=== PATIENT | female | born 1970 | race Caucasian/White ===

== ENCOUNTER 2017-05-11 12:52 | Emergency (ER) | payer SELFPAY ==
[~2017-05-11] VITALS: Ht 149.9 cm; Wt 64.0 kg
[~2017-05-11 12:52] MED LIST: ASPIRIN EC325 MG PO; CARDIZEM CD120 MG PO; CARDIZEM30 MG PO; COREG25 MG PO; COUMADIN7.5 MG PO; DIGOXIN0.25 MG PO; KEFLEX500 MG PO; LANOXIN0.25 MG PO; LASIX 20 MG20 MG/TAB PO; LORTAB 5 OR; ULTRAM50 M1 OR; XARELTO10 MG PO
[2017-05-11 13:47] LABS: HEMATOCRIT 49.8 % (37.0-47.0); HEMOGLOBIN 16.8 g/dl (12.0-16.0); IMMATURE GRANULOCYTES 0.2 % (0.0-1.0); MEAN CORPUSCULAR HGB 33.4 pG CALC (26.0-32.0); MEAN CORPUSCULAR HGB CONC 33.7 g/L CALC (32.0-36.0); NEUT# 5.56 thou/uL (2.00-7.15); RED BLOOD COUNT 5.03 mill/uL (4.20-5.60); RED CELL DISTRI WIDTH 12.7 % (11.5-15.5)
[2017-05-11] MEDS ORDERED: CRESTOR20 MG PO (13:48)
[2017-05-11] MEDS ORDERED: ALBUTEROL0.5 % IN (13:50)
[2017-05-11 14:02] LABS: INTERNATIONAL NORMALIZED RATIO 2.5 RATIO (0.7-1.3); PROTHROMBIN TIME 28.7 SECONDS (9.0-12.5)
[2017-05-11 14:10] LABS: INFLUENZA A NONE DETECTED (NONE DETECT); INFLUENZA B NONE DETECTED (NONE DETECT)
[2017-05-11 16:42] LABS: URINE BILIRUBIN - DIPSTICK NEGATIVE (NEGATIVE); URINE BLOOD DIPSTICK NEGATIVE (NEGATIVE); URINE COLOR YELLOW; URINE GLUCOSE - DIPSTICK NEGATIVE (NEGATIVE); URINE KETONE TRACE mg/dL (NEGATIVE); URINE LEUK ESTERASE NEGATIVE (NEGATIVE); URINE NITRITE - DIPSTICK NEGATIVE (Negative); URINE PH 5.5 (4.5-8.0); URINE PROTEIN - DIPSTICK NEGATIVE (NEG-TRACE); URINE SPECIFIC GRAVITY 1.025; URINE UROBILINOGEN - DIPSTICK 0.2 E.U./dL (0.2)
[2017-05-11] MEDS ORDERED: ZITHROMAX250 MG PO (16:45)
[2017-05-11 16:47] LABS: COCAINE POSITIVE (NEGATIVE); TETRAHYDROCANNABIONOL NEGATIVE (NEGATIVE)
[2017-05-11 16:48] LABS: BARBITURATES NEGATIVE (NEGATIVE); METHADONE NEGATIVE (NEGATIVE); OXCYCODONE NEGATIVE (NEGATIVE); TRICYLIC ANTIDEPRESSANTS NEGATIVE (NEGATIVE)
[2017-05-11 16:49] LABS: URINE CLARITY CLEAR
[2017-05-11 16:56] VITALS: BP 112/59
== END 2017-05-11 16:56 | disposition home or self-care (01) | DRG 203 ==
LOC: ED 12:52
PROVIDERS: Emergency Medicine
DX: J40 Bronchitis, not specified as acute or chronic (principal); F17.210 Nicotine dependence, cigarettes, uncomplicated; R05 Cough; R50.9 Fever, unspecified

== ENCOUNTER 2018-02-15 10:27 | Emergency (ER) | payer SELFPAY ==
[~2018-02-15] VITALS: Ht 149.9 cm; Wt 69.0 kg
[~2018-02-15 10:27] MED LIST changes: +ALBUTEROL0.5 % IN; +CRESTOR20 MG PO; +ZITHROMAX250 MG PO
[2018-02-15] MEDS ORDERED: KEFLEX500 M1 PO (12:08)
[2018-02-15 12:45] VITALS: BP 125/83
== END 2018-02-15 12:45 | disposition home or self-care (01) | DRG 603 ==
LOC: ED 10:27
DX: L03.113 Cellulitis of right upper limb (principal); L03.011 Cellulitis of right finger; S61.431A Puncture wound without foreign body of right hand, initial encounter; M25.441 Effusion, right hand; W45.8XXA Other foreign body or object entering through skin, initial encounter; Y93.9 Activity, unspecified

== ENCOUNTER 2019-04-25 22:22 | Emergency (ER) | payer OTHER ==
[~2019-04-25] VITALS: Ht 149.9 cm; Wt 74.1 kg
[~2019-04-25 22:22] MED LIST changes: +KEFLEX500 M1 PO
[2019-04-25] MEDS ORDERED: COUMADIN10 MG PO (22:39)
[2019-04-25] MEDS ORDERED: TENORMIN25 M1 PO (22:40)
[2019-04-25] MEDS ORDERED: XANAX0.5 MG PO (22:41)
[2019-04-25] MEDS ORDERED: LEVOTHYROXIN75 MCG PO (22:41)
[2019-04-25] MEDS ORDERED: ATORVASTATIN CA80 MG PO (22:42)
--- NOTE | 2019-04-25 22:58 | NUR ---
BREATHING TREATMENT GIVEN. BREATHING TECH. FOR GOOD DEPOSITION TO THE LUNGS.
[2019-04-25 23:12] LABS: IMMATURE GRANULOCYTES 0.8 % (0.0-5.0); MEAN CELL VOLUME 97.9 fL CALC (80.0-100.0); MEAN CORPUSCULAR HGB 31.8 pG CALC (26.0-32.0); MEAN CORPUSCULAR HGB CONC 32.5 g/L CALC (32.0-36.0); NEUT# 8.65 thou/uL (2.00-7.15); RED BLOOD COUNT 4.24 mill/uL (4.20-5.60); RED CELL DISTRI WIDTH 12.9 % (11.5-15.5)
[2019-04-25 23:21] LABS: HEMATOCRIT 41.5 % (37.0-47.0); HEMOGLOBIN 13.5 g/dl (12.0-16.0)
[2019-04-25 23:32] LABS: HCG SERUM/URINE (NEG/POS) NEGATIVE (NEGATIVE)
[2019-04-26] MEDS ORDERED: VENTOLIN HFA IN (00:04)
[2019-04-26] MEDS ORDERED: DOXYCYCL HYC100 MG PO (00:04)
[2019-04-26] MEDS ORDERED: PREDNISONE50 MG PO (00:04)
[2019-04-26 00:20] VITALS: BP 97/67
== END 2019-04-26 00:20 | disposition home or self-care (01) ==
LOC: ED 22:22
PROVIDERS: Family Medicine
DX: J45.901 Unspecified asthma with (acute) exacerbation (principal); I10 Essential (primary) hypertension; I48.91 Unspecified atrial fibrillation; I25.2 Old myocardial infarction; F17.210 Nicotine dependence, cigarettes, uncomplicated; Z86.73 Personal history of transient ischemic attack (TIA), and cerebral infarction without residual deficits

== ENCOUNTER 2019-05-22 | Emergency (ER) | payer OTHER ==
[~2019-05-22] MED LIST changes: +ATORVASTATIN CA80 MG PO; +COUMADIN10 MG PO; +DOXYCYCL HYC100 MG PO; +LEVOTHYROXIN75 MCG PO; +PREDNISONE50 MG PO; +TENORMIN25 M1 PO; +VENTOLIN HFA IN; +XANAX0.5 MG PO
[2019-05-22 12:25] LABS: HEMATOCRIT 43.7 % (37.0-47.0); HEMOGLOBIN 14.4 g/dl (12.0-16.0); IMMATURE GRANULOCYTES 0.4 % (0.0-5.0); MEAN CELL VOLUME 99.1 fL CALC (80.0-100.0); MEAN CORPUSCULAR HGB 32.7 pG CALC (26.0-32.0); NEUT# 5.91 thou/uL (2.00-7.15); RED BLOOD COUNT 4.41 mill/uL (4.20-5.60); RED CELL DISTRI WIDTH 13.1 % (11.5-15.5)
[2019-05-22 12:37] LABS: ANION GAP 12 (6-22 (CALC)); BILIRUBIN, TOTAL 0.4 mg/dL (0.0-1.4); BUN 14 mg/dL (7-17); BUN/CREATININE RATIO 17 (12-20 (CALC)); CARBON DIOXIDE 25 mmol/l (22-30); CHLORIDE 103 mmol/l (95-108); CREATININE 0.8 mg/dL (0.5-1.0); GFR > 60 ML/MIN (>=60 (CALC)); GFR FOR AFR.AMER. > 60 ML/MIN (>=60 (CALC)); POTASSIUM 4.3 mmol/l (3.5-5.1); SGOT/AST 43 u/l (14-36); SODIUM 137 mmol/l (137-146)
[2019-05-22 12:38] LABS: ALBUMIN 4.7 g/dL (3.2-5.0); ALKALINE PHOSPHATASE 119 u/l (38-126); TOTAL PROTEIN 8.5 g/dL (6.3-8.2)
[2019-05-22 12:48] LABS: PROTHROMBIN TIME 41.6 SECONDS (9.0-12.5)
[2019-05-22 12:49] LABS: INTERNATIONAL NORMALIZED RATIO 4.2 RATIO (0.7-1.3)
[2019-05-22 13:34] LABS: URINE BILIRUBIN - DIPSTICK NEGATIVE (NEGATIVE); URINE BLOOD DIPSTICK NEGATIVE (NEGATIVE); URINE COLOR YELLOW; URINE GLUCOSE - DIPSTICK NEGATIVE (NEGATIVE); URINE KETONE NEGATIVE (NEGATIVE); URINE LEUK ESTERASE NEGATIVE (NEGATIVE); URINE NITRITE - DIPSTICK NEGATIVE (Negative); URINE PH 6.5 (4.5-8.0); URINE PROTEIN - DIPSTICK NEGATIVE (NEG-TRACE); URINE UROBILINOGEN - DIPSTICK 0.2 E.U./dL (0.2)
[2019-05-22] MEDS ORDERED: MEDDOSEPAK PO (13:50)
[2019-05-22] MEDS ORDERED: TESSALON PER100 MG PO (13:50)
[2019-05-22] MEDS ORDERED: TRAMADOL HYDROC50 M1 PO (13:50)
[2019-09-27] MEDS ORDERED: LISINOPRIL2.5 MG PO (10:13)
[2019-09-27] MEDS ORDERED: BUSPIRONE7.5 MG PO (10:13)
[2019-11-21] MEDS ORDERED: HYDROCODONE/ACE1 TAB PO ×2 (14:37→14:39)
== END 2019-05-22 14:08 | disposition home or self-care (01) ==
DX: J06.9 Acute upper respiratory infection, unspecified (principal); M17.11 Unilateral primary osteoarthritis, right knee; R79.1 Abnormal coagulation profile; T45.515A Adverse effect of anticoagulants, initial encounter; F17.210 Nicotine dependence, cigarettes, uncomplicated; I48.91 Unspecified atrial fibrillation; I10 Essential (primary) hypertension; I25.2 Old myocardial infarction; Z79.01 Long term (current) use of anticoagulants; Z86.73 Personal history of transient ischemic attack (TIA), and cerebral infarction without residual deficits

== ENCOUNTER 2019-05-25 12:40 | Observation (INO) | payer OTHER ==
[~2019-05-25] VITALS: Ht 149.9 cm; Wt 78.0 kg
[~2019-05-25 12:40] MED LIST changes: +MEDDOSEPAK PO; +TESSALON PER100 MG PO; +TRAMADOL HYDROC50 M1 PO
[2019-05-25 13:33] LABS: HEMATOCRIT 45.2 % (37.0-47.0); HEMOGLOBIN 14.5 g/dl (12.0-16.0); IMMATURE GRANULOCYTES 1.3 % (0.0-5.0); MEAN CELL VOLUME 100.4 fL CALC (80.0-100.0); MEAN CORPUSCULAR HGB 32.2 pG CALC (26.0-32.0); MEAN CORPUSCULAR HGB CONC 32.1 g/L CALC (32.0-36.0); NEUT# 10.27 thou/uL (2.00-7.15); RED BLOOD COUNT 4.5 mill/uL (4.20-5.60); RED CELL DISTRI WIDTH 13.2 % (11.5-15.5)
[2019-05-25] MEDS ORDERED: EQ ASPIRIN81 MG PO (13:43)
[2019-05-25 14:17] LABS: ALBUMIN 4.6 g/dL (3.2-5.0); ALKALINE PHOSPHATASE 94 u/l (38-126); ANION GAP 14 (6-22 (CALC)); BUN 16 mg/dL (7-17); BUN/CREATININE RATIO 22 (12-20 (CALC)); CARBON DIOXIDE 25 mmol/l (22-30); CHLORIDE 103 mmol/l (95-108); CREATININE 0.7 mg/dL (0.5-1.0); GFR > 60 ML/MIN (>=60 (CALC)); GFR FOR AFR.AMER. > 60 ML/MIN (>=60 (CALC)); POTASSIUM 4.6 mmol/l (3.5-5.1); SGOT/AST 40 u/l (14-36); SODIUM 138 mmol/l (137-146); TOTAL PROTEIN 8.2 g/dL (6.3-8.2)
[2019-05-25 14:34] LABS: BILIRUBIN, TOTAL 0.6 mg/dL (0.0-1.4)
[2019-05-25 15:23] LABS: INTERNATIONAL NORMALIZED RATIO 1.5 RATIO (0.7-1.3)
[2019-05-25 15:53] LABS: URINE BILIRUBIN - DIPSTICK NEGATIVE (NEGATIVE); URINE BLOOD DIPSTICK NEGATIVE (NEGATIVE); URINE COLOR YELLOW; URINE GLUCOSE - DIPSTICK NEGATIVE (NEGATIVE); URINE KETONE NEGATIVE (NEGATIVE); URINE LEUK ESTERASE NEGATIVE (NEGATIVE); URINE NITRITE - DIPSTICK NEGATIVE (Negative); URINE PH 5.5 (4.5-8.0); URINE PROTEIN - DIPSTICK NEGATIVE (NEG-TRACE); URINE UROBILINOGEN - DIPSTICK 0.2 E.U./dL (0.2)
[2019-05-25 19:59] VITALS: BP 118/72
[2019-05-26 00:11] VITALS: BP 108/73
[2019-05-26 03:28] VITALS: BP 114/74; BP 120/60
[2019-05-26 09:51] VITALS: BP 116/70
[2019-05-26 11:34] VITALS: BP 102/54
[2019-05-26 11:44] LABS: HEMATOCRIT 44.3 % (37.0-47.0); HEMOGLOBIN 13.9 g/dl (12.0-16.0); MEAN CORPUSCULAR HGB 32.3 pG CALC (26.0-32.0); MEAN CORPUSCULAR HGB CONC 31.4 g/L CALC (32.0-36.0); RED BLOOD COUNT 4.3 mill/uL (4.20-5.60); RED CELL DISTRI WIDTH 13.2 % (11.5-15.5)
[2019-05-26 12:00] LABS: INTERNATIONAL NORMALIZED RATIO 1.8 RATIO (0.7-1.3); PROTHROMBIN TIME 18.4 SECONDS (9.0-12.5)
[2019-05-26 12:01] LABS: ANION GAP 16 (6-22 (CALC)); BUN 12 mg/dL (7-17); BUN/CREATININE RATIO 23 (12-20 (CALC)); CHLORIDE 106 mmol/l (95-108); CREATININE 0.5 mg/dL (0.5-1.0); GFR > 60 ML/MIN (>=60 (CALC)); GFR FOR AFR.AMER. > 60 ML/MIN (>=60 (CALC)); POTASSIUM 4.2 mmol/l (3.5-5.1); SODIUM 137 mmol/l (137-146)
[2019-05-26 12:22] LABS: CARBON DIOXIDE 19 mmol/l (22-30)
[2019-05-26] MEDS ORDERED: PREDNISONE10 MG PO (14:34)
[2019-05-26] MEDS ORDERED: LEVAQUIN750 MG PO (14:34)
[2019-09-27] MEDS ORDERED: LISINOPRIL2.5 MG PO (10:13)
[2019-09-27] MEDS ORDERED: BUSPIRONE7.5 MG PO (10:13)
[2019-11-21] MEDS ORDERED: HYDROCODONE/ACE1 TAB PO ×2 (14:37→14:39)
== END 2019-05-26 15:52 | disposition home or self-care (01) ==
LOC: ED 12:40 → ED-I 16:10 → ED 16:15 → ED-I 16:16 → MS2 17:27
PROVIDERS: Nurse Practitioner Family; ADMIT Internal Medicine; ATTEND Internal Medicine
DX: J45.902 Unspecified asthma with status asthmaticus (principal); J43.9 Emphysema, unspecified; I10 Essential (primary) hypertension; I48.91 Unspecified atrial fibrillation; E03.9 Hypothyroidism, unspecified; E78.5 Hyperlipidemia, unspecified; M25.562 Pain in left knee; I69.998 Other sequelae following unspecified cerebrovascular disease; I69.954 Hemiplegia and hemiparesis following unspecified cerebrovascular disease affecting left non-dominant side; H53.40 Unspecified visual field defects; I25.2 Old myocardial infarction; Z79.01 Long term (current) use of anticoagulants; Z87.891 Personal history of nicotine dependence; Z86.711 Personal history of pulmonary embolism
CPT/HCPCS: G0378; J1650; J3475

== ENCOUNTER 2019-08-17 | Emergency (ER) | payer OTHER ==
[~2019-08-17] MED LIST changes: +EQ ASPIRIN81 MG PO; +LEVAQUIN750 MG PO; +PREDNISONE10 MG PO
[2019-08-17] MEDS ORDERED: CARVEDILOL6.25 MG PO (18:43)
[2019-08-17] MEDS ORDERED: PERCOCET 5/325M1 TAB PO (18:54)
[2019-09-27] MEDS ORDERED: LISINOPRIL2.5 MG PO (10:13)
[2019-09-27] MEDS ORDERED: BUSPIRONE7.5 MG PO (10:13)
[2019-11-21] MEDS ORDERED: HYDROCODONE/ACE1 TAB PO ×2 (14:37→14:39)
== END 2019-08-17 19:08 | disposition home or self-care (01) ==
DX: G89.29 Other chronic pain (principal); M25.561 Pain in right knee; I10 Essential (primary) hypertension; F17.200 Nicotine dependence, unspecified, uncomplicated; I25.2 Old myocardial infarction; Z86.73 Personal history of transient ischemic attack (TIA), and cerebral infarction without residual deficits; Z86.79 Personal history of other diseases of the circulatory system

== ENCOUNTER 2019-11-01 06:03 | Day surgery (SDC) | payer OTHER ==
[~2019-11-01] VITALS: Ht 149.9 cm; Wt 86.2 kg
[~2019-11-01 06:03] MED LIST changes: +BUSPIRONE7.5 MG PO; +CARVEDILOL6.25 MG PO; +LISINOPRIL2.5 MG PO; +PERCOCET 5/325M1 TAB PO
[2019-11-01 08:17] VITALS: BP 133/87
[2019-11-21] MEDS ORDERED: HYDROCODONE/ACE1 TAB PO ×2 (14:37→14:39)
== END 2019-11-01 09:10 | disposition home or self-care (01) ==
LOC: ORM 06:03
PROVIDERS: ATTEND Anesthesiology Pain Medicine
DX: M17.11 Unilateral primary osteoarthritis, right knee (principal); Z01.84 Encounter for antibody response examination

== ENCOUNTER 2020-01-02 11:16 | Inpatient (IN) | payer OTHER ==
[~2020-01-02] VITALS: Ht 149.9 cm; Wt 86.0 kg
[~2020-01-02 11:16] MED LIST changes: +HYDROCODONE/ACE1 TAB PO
--- NOTE | 2020-01-02 11:22 | NUR ---
PT TO ROOM VIA WC
--- NOTE | 2020-01-02 11:23 | NUR ---
PATIENT PRESENTS WITH INCREASED WEAKNESS TO LEFT UPPER AND LOWER EXTREMITIES WELL STATED SLURRED SPEECH. 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 PT UNSURE OF LAST KNOWN WELL AND STATES IT WAS SOME TIME YESTERDAY AFTERNOON WHEN HER SYMPTOMS STARTED. PT A&O X 3. STROKE ALERT CALLED.
--- NOTE | 2020-01-02 11:26 | NUR ---
PATIENT TO CT IN STABLE CONDITION VIA STRETCHER.
--- NOTE | 2020-01-02 11:28 | NUR ---
DR ROBERTS ON TELESTROKE SCREEN, PT INFORMATION WAS PROVIDED WHILE PT WAS GETTING CT BRAIN. 1132 DR ROBERTS ASSESSED PATIENT AND NIH WAS COMPLETED. AFTER EXAM DR ROBERTS STATED HE DID NOT WANT CTA AND WILL CALL DR DUNCAN TO DISCUSS PLAN OF CARE.
--- NOTE | 2020-01-02 11:40 | NUR ---
FULL NIH COMPLETED. PT SCORED A 7. PATIENT HAS LEFT SIDED FACIAL DROOP, LEFT ARM DRIFT AND UNABLE TO RESIST GRAVITY TO LLE. 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 ATAXIA TO LLE AND MILD SENSORY LOSS TO LEFT SIDE OF BODY.
[2020-01-02 12:06] LABS: GFR > 60 ML/MIN (>=60 (CALC)); GFR FOR AFR.AMER. > 60 ML/MIN (>=60 (CALC))
[2020-01-02 12:09] LABS: HEMATOCRIT 46.4 % (37.0-47.0); HEMOGLOBIN 14.8 g/dl (12.0-16.0); IMMATURE GRANULOCYTES 0.7 % (0.0-5.0); MEAN CELL VOLUME 97.1 fL CALC (80.0-100.0); MEAN CORPUSCULAR HGB CONC 31.9 g/dL CAL (32.0-36.0); NEUT# 7.01 thou/uL (2.00-7.15); RED BLOOD COUNT 4.78 mill/uL (4.20-5.60); RED CELL DISTRI WIDTH 12.6 % (11.5-15.5)
--- NOTE | 2020-01-02 12:10 | NUR ---
DR DUNCAN AT BEDSIDE TO DISCUSS RESULTS AND POC.
[2020-01-02 12:41] LABS: ALBUMIN 4.6 g/dL (3.2-5.0); ALKALINE PHOSPHATASE 118 u/l (38-126); ANION GAP 13 (6-22 (CALC)); BILIRUBIN, TOTAL 0.5 mg/dL (0.0-1.4); BUN 13 mg/dL (7-17); BUN/CREATININE RATIO 19 (12-20 (CALC)); CHLORIDE 105 mmol/l (95-108); CREATININE 0.7 mg/dL (0.5-1.0); GFR > 60 ML/MIN (>=60 (CALC)); GFR FOR AFR.AMER. > 60 ML/MIN (>=60 (CALC)); SGOT/AST 39 u/l (14-36); SODIUM 137 mmol/l (137-146); TOTAL PROTEIN 8.2 g/dL (6.3-8.2)
[2020-01-02 12:42] LABS: CARBON DIOXIDE 23 mmol/l (22-30)
[2020-01-02 12:43] LABS: PROTHROMBIN TIME 48.9 SECONDS (9.0-12.5)
[2020-01-02 12:44] LABS: INTERNATIONAL NORMALIZED RATIO 5.3 RATIO (0.7-1.3)
--- NOTE | 2020-01-02 13:10 | NUR ---
TO RADIOLOGY IN STABLE CONDITION VIA STRETCHER.
--- NOTE | 2020-01-02 13:32 | NUR ---
PT RESTING ON STRETCHER WATCHING TV AND TALKING ON CELL PHONE. DENIES ANY NEEDS AT THIS TIME. VSS. MONITORS ATTACHED. CALL LIGHT WITHIN REACH.
--- NOTE | 2020-01-02 14:25 | NUR ---
MD AT BEDSIDE TO DISCUSS RESULTS AND POC.
[2020-01-02 14:57] LABS: CHOLESTEROL HDL RATIO 3.8 (<4.4 (CALC))
--- NOTE | 2020-01-02 15:10 | NUR ---
PHYSICAL THERAPY AT BEDSIDE FOR SWALLOW STUDY.
--- NOTE | 2020-01-02 15:47 | NUR ---
ARCHANA DELAROSA AT BEDSIDE.
--- NOTE | 2020-01-02 16:40 | NUR ---
PT RETURNED FROM RADIOLOGY IN STABLE CONDITION VIA WHEELCHAIR. ASSISTED TO BEDSIDE COMMODE WITH STAND BY ASSIST.
[2020-01-02 17:22] LABS: URINE BILIRUBIN - DIPSTICK NEGATIVE (NEGATIVE); URINE BLOOD DIPSTICK NEGATIVE (NEGATIVE); URINE COLOR YELLOW; URINE GLUCOSE - DIPSTICK NEGATIVE (NEGATIVE); URINE KETONE NEGATIVE (NEGATIVE); URINE LEUK ESTERASE NEGATIVE (NEGATIVE); URINE NITRITE - DIPSTICK NEGATIVE (Negative); URINE PH 5.5 (4.5-8.0); URINE PROTEIN - DIPSTICK NEGATIVE (NEG-TRACE); URINE SPECIFIC GRAVITY 1.015; URINE UROBILINOGEN - DIPSTICK 0.2 E.U./dL (0.2)
--- NOTE | 2020-01-02 18:13 | NUR ---
PT HAD WELSH FRIES AND COKE BROUGHT IN BY AFTER ADVISED PUREED DIET. TOLERATED WITHOUT DIFFICULTY.
--- NOTE | 2020-01-02 18:55 | NUR ---
TELEPHONE REPORT RECEIVED FROM Angel Luis WALSH RN IN ED, ROOM ICU#7 ASSIGNED AND PREPARED TO RECEIVE PT.
--- NOTE | 2020-01-02 18:58 | NUR ---
NURSE TO NURSE REPORT CALLED TO MESSI MA.
--- NOTE | 2020-01-02 19:15 | NUR ---
TO ICU #7 VIA STRETCHER, PT SENT PAIN MEDICATION HOME WITH .
--- NOTE | 2020-01-02 19:20 | NUR ---
PT ARRIVES TO UNIT VIA STRETCHER, ACCOMPANIED BY Angel Luis WALSH RN, PT AMBULATES FROM STRETCHER TO BED WITH ASSIST, GAIT IS UNSTEADY AND UNBALANCED. ASSITED PT TO POSITION COMFORTABLY IN BED. PT AGREES TO USE CALL ARANGO AND NOT ATTEMPT TO GET OOB BY HERSELF. CALL [facility]ANGO WITHIN REACH. AGREES TO CALL PRN.
[2020-01-02 20:00] VITALS: BP 101/66
--- NOTE | 2020-01-02 20:00 | NUR ---
ADMISSION ASSESMENT COMPLETE. PT RESTING IN BED. PT REQUESTS EXTRA PILLOW, EXTRA BLANKETS X2, ICE, FAN, AND TO TURN DOWN THERMOSTAT. STATES SHE GETS "HOT AND COLD" THROUGHOUT THE NIGHT. PROVIDED PTS REQUESTS. PT DENIES FURTHER NEEDS AT THIS TIME. PLAN OF CARE REVIEWED. PT VERBALIZES UNDERSTANDING AND DENIES QUESTIONS. ITEMS WITHIN REACH. BED LOCKED IN LOW POSITION W/ BEDRAILS UP X3 PER PTS REQUEST. CALL ARANGO WITHIN REACH, AGREES TO CALL PRN.
--- NOTE | 2020-01-02 20:30 | NUR ---
PT REPORTS HEADACHE AND R-KNEE PAIN, REPORTED TO DR. HARRISON AND ORDER RECEIVED TO RESUME PTS PRESCRIBED HOME PRN ANALGESIC. HYDROCODONE/APAP 10/325MG PO Q8H PRN FOR MODERATE TO SEVERE PAIN.
--- NOTE | 2020-01-02 21:15 | NUR ---
SCHEDULED MEDS AND PRN HYDROCODNE ADMINISTERED, SEE E-MAR.
--- NOTE | 2020-01-02 21:20 | NUR ---
PT ASSITED TO BSC AND BACK TO BED BY Coleen MERRITT CNA
[2020-01-02 22:00] VITALS: BP 113/80
--- NOTE | 2020-01-02 23:11 | NUR ---
PT ASSISTED UP TO BSC AND BACK TO BED BY Coleen WALKERA
[2020-01-03] VITALS (7 sets, daily range): BP systolic 83–119; BP diastolic 60–76
--- NOTE | 2020-01-03 00:29 | NUR ---
SHRIMP PACKER BUDDY IN ROOM TO DRAW TROPONIN LEVEL
--- NOTE | 2020-01-03 01:13 | NUR ---
TROPONIN LEVEL <0.012 ng/ml
--- NOTE | 2020-01-03 08:00 | NUR ---
PT SEEN AWAKE, ALERT, ORIENTED X 3. LUNGS CLEAR, DIMINISHED BASES, RA. PT WITH LEFT ARM PAIN WITH MOVEMENT, GUARDS AGAINST THAT. PT ABLE TO RELATE HER HISTORY APPROPRIATELY. PT SEEN BY DR HARRISON, WAITS FOR RESULTS OF MRI DONE YESTERDAY. NO ACUTE DISTRESS, NO WORSENING OF SYMPTOMS.
[2020-01-03 08:38] LABS: HEMATOCRIT 43.4 % (37.0-47.0); HEMOGLOBIN 13.8 g/dl (12.0-16.0); MEAN CELL VOLUME 98.4 fL CALC (80.0-100.0); MEAN CORPUSCULAR HGB 31.3 pG CALC (26.0-32.0); MEAN CORPUSCULAR HGB CONC 31.8 g/dL CAL (32.0-36.0); RED BLOOD COUNT 4.41 mill/uL (4.20-5.60); RED CELL DISTRI WIDTH 12.6 % (11.5-15.5)
[2020-01-03 08:51] LABS: ANION GAP 11 (6-22 (CALC)); BUN 11 mg/dL (7-17); BUN/CREATININE RATIO 18 (12-20 (CALC)); CARBON DIOXIDE 23 mmol/l (22-30); CHLORIDE 108 mmol/l (95-108); CREATININE 0.6 mg/dL (0.5-1.0); GFR > 60 ML/MIN (>=60 (CALC)); GFR FOR AFR.AMER. > 60 ML/MIN (>=60 (CALC)); MAGNESIUM 1.9 mg/dL (1.6-2.3); POTASSIUM 4.3 mmol/l (3.5-5.1); SODIUM 138 mmol/l (137-146)
--- NOTE | 2020-01-03 10:58 | NUR ---
PT REPORTS NUMBNESS TO LEFT SIDE OF FACE THAT RADIATES DOWN NECK AND INTO LEFT ARM, STATES THAT IT FEELS LIKE HER ARM IS COLD. NO CHANGE IN FUNCTION.
[2020-01-03 11:51] LABS: INTERNATIONAL NORMALIZED RATIO 3.2 RATIO (0.7-1.3); PROTHROMBIN TIME 29.8 SECONDS (9.0-12.5)
--- NOTE | 2020-01-03 12:27 | NUR ---
PT PROVIDED ATIVAN FOR TENSION HEADACHE, REGULAR MEAL TRAY PROVIDED, ALSO. PT SEEN BY CASE MGMT.
[2020-01-03] MEDS ORDERED: COUMADIN7.5 MG PO (13:06)
--- NOTE | 2020-01-03 14:37 | NUR ---
PT HAS BEEN DISCHARGED TO HOME. PT VERBALIZED UNDERSTANDING OF DC INSTRUCTIONS, TAKEN BY WHEELCHAIR TO VEHICLE. PT STATED THAT SHE WOULD TAKE THE 7.5 MG COUMADIN AT HOME, DID NOT STAY AROUND FOR US TO GIVE IT TO HER. PT DID HAVE LEFT SIDED WEAKNESS, SAID TO BE NORMAL FOR HER. PT LEAVES [facility] IN STABLE CONDITION, ALTHOUGH SHE THOUGHT SHE SHOULD HAVE BEEN ALLOWED TO STAY LONGER.
== END 2020-01-03 14:20 | DRG 57 ==
LOC: ED 11:16 → ED-I 13:50 → ED 14:27 → ED-I 14:28 → ICU 14:28
PROVIDERS: Family Medicine; Nurse Practitioner; ADMIT Internal Medicine; ATTEND Internal Medicine
DX: I69.354 Hemiplegia and hemiparesis following cerebral infarction affecting left non-dominant side (principal); R47.01 Aphasia; R20.0 Anesthesia of skin; R47.1 Dysarthria and anarthria; I10 Essential (primary) hypertension; I69.398 Other sequelae of cerebral infarction; H54.62 Unqualified visual loss, left eye, normal vision right eye; I48.91 Unspecified atrial fibrillation; R79.1 Abnormal coagulation profile; J43.9 Emphysema, unspecified; E03.9 Hypothyroidism, unspecified; E78.5 Hyperlipidemia, unspecified; M25.561 Pain in right knee; G89.29 Other chronic pain; T45.515A Adverse effect of anticoagulants, initial encounter; I25.2 Old myocardial infarction; Z79.01 Long term (current) use of anticoagulants; Z87.891 Personal history of nicotine dependence; Z86.711 Personal history of pulmonary embolism; Z11.59 Encounter for screening for other viral diseases
CPT/HCPCS: J2060; Q9967; S0164

== ENCOUNTER 2020-03-29 09:59 | Observation (INO) | payer OTHER ==
[2020-03-29] VITALS (7 sets, daily range): BP systolic 90–104; BP diastolic 53–76
[~2020-03-29] VITALS: Ht 149.9 cm; Wt 83.2 kg
--- NOTE | 2020-03-29 09:59 | NUR ---
PT TO ROOM VIA EMS FOR BEDSIDE TRIAGE
--- NOTE | 2020-03-29 10:10 | NUR ---
PATIENT HAS CHRONIC LEFT EYE BLINDNESS DUE TO PAST STROKE. SHE IS UNABLE TO RECONCILE MEDICATIONS SHE LEFT LIST AT HOME. WILL GO OVER PAST FILLED MEDICATIONS WITH PATIENT TO RECONCILE.
--- NOTE | 2020-03-29 10:20 | NUR ---
PATIENT MEDICATED WITH 4MG OF MORPHINE AND 4 MG OF ZOFRAN. AFTER GIVING THE MORPHINE SLOW, IVP PT STATES HER IV SITE WAS BURNING AND THAT SHE FELT IF SHE WAS HAVING ANT BITING HER ON HER ENTIRE LEFT ARM. NO REDNESS OR RASH TO LEFT ARM NOTED. PT DENIES ANY INCREASE OF SOB. DR DUNCAN NOTIFIED.
[2020-03-29 10:24] LABS: HEMOGLOBIN 13.1 g/dl (12.0-16.0); IMMATURE GRANULOCYTES 0.6 % (0.0-5.0); MEAN CELL VOLUME 97.7 fL CALC (80.0-100.0); MEAN CORPUSCULAR HGB 30.5 pG CALC (26.0-32.0); MEAN CORPUSCULAR HGB CONC 31.2 g/dL CAL (32.0-36.0); NEUT# 5.72 thou/uL (2.00-7.15); RED BLOOD COUNT 4.3 mill/uL (4.20-5.60); RED CELL DISTRI WIDTH 13.2 % (11.5-15.5)
--- NOTE | 2020-03-29 10:30 | NUR ---
DR DUNCAN AT BEDSIDE, PT DENIES THE FELLING OF ANTS BITING HER AND IS CHEST PAIN FREE AT THIS TIME. PATIENT CALL ARANGO WITHIN [facility] AND IS AWARE OF PLAN OF CARE AND WAIT TIME.
[2020-03-29 10:45] LABS: ALBUMIN 4.3 g/dL (3.2-5.0); ALKALINE PHOSPHATASE 93 u/l (38-126); ANION GAP 12 (6-22 (CALC)); BILIRUBIN, TOTAL 0.5 mg/dL (0.0-1.4); BUN 18 mg/dL (7-17); BUN/CREATININE RATIO 22 (12-20 (CALC)); CARBON DIOXIDE 23 mmol/l (22-30); CHLORIDE 107 mmol/l (95-108); CREATININE 0.8 mg/dL (0.5-1.0); GFR > 60 ML/MIN (>=60 (CALC)); GFR FOR AFR.AMER. > 60 ML/MIN (>=60 (CALC)); LIPASE 133 u/l (23-300); SGOT/AST 42 u/l (14-36); SODIUM 138 mmol/l (137-146); TOTAL PROTEIN 7.8 g/dL (6.3-8.2)
--- NOTE | 2020-03-29 10:47 | NUR ---
PT REQUESTING TO HAVE 2L NC PLACED ON HER. SHE INFORMED US THAT SHE HAS IT AT HOME AND USES IT NEEDED. SHE DENIES ANY INCREASED SOB OR TIGHTNESS TO THROAT.
[2020-03-29] MEDS ORDERED: BUSPIRONE HCL7.5 MG PO (11:19)
[2020-03-29] MEDS ORDERED: ATORVASTATIN CA80 MG PO (11:20)
[2020-03-29] MEDS ORDERED: ATENOLOL25 MG PO (11:20)
[2020-03-29] MEDS ORDERED: CARVEDILOL25 MG PO (11:20)
[2020-03-29] MEDS ORDERED: LISINOPRIL2.5 MG PO (11:21)
[2020-03-29] MEDS ORDERED: CELEXA20 MG PO (11:21)
--- NOTE | 2020-03-29 11:25 | NUR ---
AT BEDSIDE PT RESTING COMFORTABLY IN STRETCHER AND DENIES ANY CHEST PAIN, I WAS LEAVING THE ROOM PATIENT REPORTS NUMBNESS TO LEFT SIDE OF FACE STARTING 5 MINS AGO. STROKE ASSESSMENT COMPLETED, PATIENT HAS TINGLING TO LEFT SIDE BODY, SHE REPORTS INCREASED WEAKNESS TO LEFT ARM AND INCREASED SLURRED SPEECH. STROKE ALERT CALLED AT [address]6. DR DUNCAN AT BEDSIDE.
--- NOTE | 2020-03-29 11:28 | NUR ---
PATIENT TO CT SCAN IN STABLE CONDITION.
--- NOTE | 2020-03-29 11:45 | NUR ---
DR BENÍTEZ ON TELE MONITOR TO ASSESS PATIENT. DURING ASSESSMENT TPA WAS DISCUSSED. PATIENT IS NOT A CANDIDATE FOR TPA HER INR IS ELEVATED.
[2020-03-29 11:56] LABS: PROTHROMBIN TIME 44.2 SECONDS (9.0-12.5)
[2020-03-29 11:57] LABS: INTERNATIONAL NORMALIZED RATIO 4.8 RATIO (0.7-1.3)
--- NOTE | 2020-03-29 12:17 | NUR ---
PATIENT BACK TO CT SCAN AND RESTING COMFORTABLY IN STRETCHER. PATIENT TALKING WITH SHE IS AWARE OF PENDING RESULTS AND WAIT TIME. CALL ARANGO WITHIN REACH AND SHE IS AWARE OF NEED TO CONTACT STAFF IF SHE EXHIBITS ANY INCREASING SYMPTOMS OR CHANGES.
[2020-03-29] MEDS ORDERED: PROVENTIL108 MCG/AC IN (12:23)
[2020-03-29] MEDS ORDERED: WARFARIN5 MG PO (12:24)
--- NOTE | 2020-03-29 13:24 | NUR ---
PT ASSISTED AND CLEANED AFTER USING PURE WICK NO NEW COMPLAINTS
[2020-03-29 13:50] LABS: URINE BILIRUBIN - DIPSTICK NEGATIVE (NEGATIVE); URINE BLOOD DIPSTICK TRACE-INTACT (NEGATIVE); URINE COLOR YELLOW; URINE GLUCOSE - DIPSTICK NEGATIVE (NEGATIVE); URINE KETONE NEGATIVE (NEGATIVE); URINE LEUK ESTERASE NEGATIVE (NEGATIVE); URINE NITRITE - DIPSTICK NEGATIVE (Negative); URINE PROTEIN - DIPSTICK NEGATIVE (NEG-TRACE); URINE SPECIFIC GRAVITY <=1.005; URINE UROBILINOGEN - DIPSTICK 0.2 E.U./dL (0.2)
--- NOTE | 2020-03-29 14:13 | NUR ---
VS STABLE PT NOT IN ACUTE DISTRESS
--- NOTE | 2020-03-29 15:25 | NUR ---
PT ADMITTED TO ICU BED 4 FROM ED VIA STRETCHER FOR CVA R/O AND CP. PT TRANSFERRED SELF FROM STRETCHER TO BED. PT A&OX4, ABLE TO MAKE NEEDS KNOWN. AFIB ON TELEMETRY, HR 64. PT DENIES CP, SOB OR DISTRESS AT THIS TIME. PT REQUESTING FOOD, STATED SHE IS STARVING. PT AFEBRILE, NEURO PERRL, PT CONTINUES WITH L SIDED DEFICIT, PT STATES NORMAL FOR HER. RESPIRATIONS EVEN/UNLABORED, LS CLEAR THROUGHOUT, SA02@100% RA. ABDOMEN SOFT/NON-TENDER BSX4 ACTIVE, LBM 03-29-20. PT ORIENTED TO UNIT, RM AND CALL LIGHT. CALL LIGHT IN REACH. WILL MONITOR.
--- NOTE | 2020-03-29 15:35 | NUR ---
REPORT CALLED AND PT TRANSFERRED Transfer Information Transferred To: ICU Report Given to: [facility] Transported by: [facility] Other Transported with: X Nurse Transporter X Patent IV O2 X Staking Engineer
--- NOTE | 2020-03-29 17:00 | NUR ---
PT ASSISTED TO BSC, TOLERATED WELL. THEN BACK TO BED.
--- NOTE | 2020-03-29 18:02 | NUR ---
PT RESTING IN BED, WATCHING TV. NO DISTRSS NOTED AT THIS TIME
--- NOTE | 2020-03-29 19:00 | NUR ---
REPORT RECEIVED FROM Jenniffer DAVILA RN, CARE OF PT ASSUMED AT THIS TIME.
--- NOTE | 2020-03-29 19:30 | NUR ---
PT REQUESTS HELP TO BATHROOM, PT NEEDS ONLY STANDBY ASSIST, ABLE TO GET SELF UP TO COMMODE AND BACK TO BED. PT REQUEST SCDS BE REMOVED. 350ML CLEAR YELLOW URINE EMPTIED FROM COMMODE.
--- NOTE | 2020-03-29 20:31 | NUR ---
FROZEN TV TRAY WARMED UP FOR PTS FOR PER HER REQUESTS FOR "SOMETHING TO EAT", PT ALSO REPORTS SHE FEELS WARM AND ASKS IF THE THERMOSTAT CAN BE TURNED DOWN. PT AFEBRILE. TABLE TOP FAN ROVIDED FOR COMFORT.
--- NOTE | 2020-03-29 20:46 | NUR ---
LIPITOR ADMINISTERED, SEE E-MAR, ALBUTEROL INHALER NOT ON UNIT, PENDING DELIVERY FROM NURSING FLOORING MACHINE FEEDER.
--- NOTE | 2020-03-29 21:08 | NUR ---
ALBUTEROL INHALER ADMINISTERED, SEE E-MAR. EXTRA PILLOW PROVIDED PER PTS REQUEST.
[2020-03-30] VITALS (16 sets, daily range): BP systolic 78–111; BP diastolic 58–73
--- NOTE | 2020-03-30 00:20 | NUR ---
Angel Luis CORDOVA MONOTYPIST IN ROOM TO DRAW 0000 TROPONIN LEVEL.
--- NOTE | 2020-03-30 01:32 | NUR ---
TROPONIN RESULTS RECEIVED AND ASSESSED, TROPONON <0.012ng/ml, NO FURTHER INTERVENTION AT THIS TIME.
--- NOTE | 2020-03-30 03:36 | NUR ---
PT APPEARS TO BE SLEEPING COMFORTABLY. LAYING IN BED, EYES CLOSED, RESPIRATIONS REGULAR AND UNLABORED, NO APPARENT DISTRESS. CALL ARANGO REMAINS WITHIN REACH.
--- NOTE | 2020-03-30 05:49 | NUR ---
Angel Luis CORDOVA COOK TACO IN ROOM TO DRAW AM LABS.
[2020-03-30 06:27] LABS: HEMATOCRIT 42.4 % (37.0-47.0); HEMOGLOBIN 13.6 g/dl (12.0-16.0); IMMATURE GRANULOCYTES 0.6 % (0.0-5.0); MEAN CELL VOLUME 97.2 fL CALC (80.0-100.0); MEAN CORPUSCULAR HGB 31.2 pG CALC (26.0-32.0); MEAN CORPUSCULAR HGB CONC 32.1 g/dL CAL (32.0-36.0); NEUT# 6.51 thou/uL (2.00-7.15); RED BLOOD COUNT 4.36 mill/uL (4.20-5.60); RED CELL DISTRI WIDTH 13.1 % (11.5-15.5)
[2020-03-30 06:50] LABS: ALBUMIN 4.2 g/dL (3.2-5.0); ALKALINE PHOSPHATASE 87 u/l (38-126); ANION GAP 10 (6-22 (CALC)); BILIRUBIN, TOTAL 0.6 mg/dL (0.0-1.4); BUN 13 mg/dL (7-17); BUN/CREATININE RATIO 19 (12-20 (CALC)); CARBON DIOXIDE 26 mmol/l (22-30); CHLORIDE 104 mmol/l (95-108); CREATININE 0.7 mg/dL (0.5-1.0); GFR > 60 ML/MIN (>=60 (CALC)); GFR FOR AFR.AMER. > 60 ML/MIN (>=60 (CALC)); POTASSIUM 4.4 mmol/l (3.5-5.1); SGOT/AST 40 u/l (14-36); SODIUM 136 mmol/l (137-146); TOTAL PROTEIN 7.5 g/dL (6.3-8.2)
[2020-03-30 07:19] LABS: INTERNATIONAL NORMALIZED RATIO 3.8 RATIO (0.7-1.3); PROTHROMBIN TIME 35.8 SECONDS (9.0-12.5)
--- NOTE | 2020-03-30 07:40 | NUR ---
pt resting in bed with eyes closed; no apparent distress noted; easily aroused; assessment completed at this time; pt alert and oriented; admits to headache; will medicate; no n/v noted; resp even and unlabored; lungs clear; skin color wnl; ra; hr reg; pulses present; no edema noted; afib on monitor; abd soft with bs present; no bm noted per gag writer; pt voiding clear yellow urine without complication; bsc; #20 saline locked to rac; no redness or edema noted at site; left hemiparesis noted (old cva); pulses weak to left extremities; plan of care/ meds explained; call light within reach; will continue to monitor
--- NOTE | 2020-03-30 08:21 | NUR ---
awake in bed; afib on monitor; no apparent distress noted; call light within reach; will continue to monitor
--- NOTE | 2020-03-30 10:20 | NUR ---
awake in bed; no apparent distress noted; iv intact; afib on monitor; call light within reach; will continue to monitor
--- NOTE | 2020-03-30 10:42 | NUR ---
Dr Small present at bedside to assess pt and discuss plan of care
--- NOTE | 2020-03-30 12:18 | NUR ---
resting in bed with eyes closed; no apparent distress noted; pt offers no complaints; iv intact; afib on monitor; call light within reach; will continue to monitor
--- NOTE | 2020-03-30 14:30 | NUR ---
awake in bed; pt noted to have vomited over the side of bed; iv intact; afib on monitor; call light within reach; will continue to monitor
--- NOTE | 2020-03-30 14:52 | NUR ---
pt program manager environmental planning light; reports of tingling throughout body; pt with nausea and vomiting; diarrhea noted; bp 91/73; afib 60s on monitor; will notify
--- NOTE | 2020-03-30 15:00 | NUR ---
Dr Small called per show card writer; informed pt with nausea, vomiting and tingling sensation throughout body; informed of hypotension; orders received to hold discharge
--- NOTE | 2020-03-30 16:13 | NUR ---
awake in bed; updated on plan of care; medicated with zofran as per orders; pt immed requesting pudding despite concerns of nausea; pudding provided; pt denies any tingling sensation at this time; afib on monitor; call light wihtin reach; will continue to monitor
--- NOTE | 2020-03-30 17:58 | NUR ---
awake in bed; no apparent distress noted; pt cont with nausea; dinner tray left at bedside as per request; iv intact; afib on monitor; call light within reach;
--- NOTE | 2020-03-30 20:05 | NUR ---
PT. SITTING UP IN BED WATCHING TV. NO DISTRESS NOTED. DENIES PAIN/NEEDS. PROVIDED WITH FRESH ICE WATER. ASSESSMENT COMPLETED.PT. WITH LEFT SIDED WEAKNESS R/T OLD CVA, DENIES ANY INCREASE IN EXISTING WEAKNESS AT THIS TIME. NEURO CHECK REMAINS THE SAME. ENCOURAGED TO CALL FOR ANY NEEDS. CALL LIGHT IS IN REACH.
--- NOTE | 2020-03-30 23:40 | NUR ---
PT. RESTING IN BED WITH NO DISTRESS NOTED; DENIES NEEDS. VSS. SNACK PROVIDED. CALL LIGHT IS IN REACH.
[2020-03-31] VITALS (10 sets, daily range): BP systolic 78–120; BP diastolic 50–76
--- NOTE | 2020-03-31 02:00 | NUR ---
RESTING IN BED WITH NO DISTRESS NOTED; DENIES NEEDS. COLLECTION DEVELOPMENT LIBRARIAN READING AFIB; VSS. PT. TOLERATING PO WELL, NO NAUSEA OR VOMITING. CALL LIGHT IS IN REACH.
--- NOTE | 2020-03-31 04:10 | NUR ---
NEURO CHECK COMPLETED AND REMAINS THE SAME. B/P REMAINS WNL AND SCHED MED GIVEN. FRESH WATER PROVIDED AND BSC EMPTIED. IV SITE PATENT AND SL. [employer] RULES FOOTBALLER REMAINS READING AFIB. CALL LIGHT IS IN REACH.
[2020-03-31 05:01] LABS: HEMATOCRIT 42.2 % (37.0-47.0); HEMOGLOBIN 13.6 g/dl (12.0-16.0); IMMATURE GRANULOCYTES 0.5 % (0.0-5.0); MEAN CELL VOLUME 95.9 fL CALC (80.0-100.0); MEAN CORPUSCULAR HGB 30.9 pG CALC (26.0-32.0); MEAN CORPUSCULAR HGB CONC 32.2 g/dL CAL (32.0-36.0); NEUT# 7.95 thou/uL (2.00-7.15); RED BLOOD COUNT 4.4 mill/uL (4.20-5.60); RED CELL DISTRI WIDTH 12.9 % (11.5-15.5)
[2020-03-31 05:05] LABS: ALBUMIN 4.1 g/dL (3.2-5.0); ALKALINE PHOSPHATASE 101 u/l (38-126); ANION GAP 10 (6-22 (CALC)); BILIRUBIN, TOTAL 0.6 mg/dL (0.0-1.4); BUN 16 mg/dL (7-17); BUN/CREATININE RATIO 20 (12-20 (CALC)); CARBON DIOXIDE 26 mmol/l (22-30); CHLORIDE 105 mmol/l (95-108); CREATININE 0.8 mg/dL (0.5-1.0); GFR > 60 ML/MIN (>=60 (CALC)); GFR FOR AFR.AMER. > 60 ML/MIN (>=60 (CALC)); POTASSIUM 4.3 mmol/l (3.5-5.1); SGOT/AST 41 u/l (14-36); SODIUM 137 mmol/l (137-146); TOTAL PROTEIN 7.3 g/dL (6.3-8.2)
--- NOTE | 2020-03-31 07:25 | NUR ---
pt awake in bed; no apparent distress noted; pt offers no complaints; assessment completed at this time; pt alert and oriented; denies n/v; no complaints of pain voiced; pt denies tingling sensation since yesterday; resp even and unlabored; lungs clear; skin color wnl; ra; hr irreg; weak left pulses; no edema noted; afib on monitor; abd soft with bs present; no bm noted per feature writer; pt admits to voiding without complication; no urine to inspect at this time; bsc; #20 flushed and patent to rac; no redness or edema noted at site; left hemiparesis noted r/t old cva; plan of care/ am meds explained; call light within reach; will continue to monitor
--- NOTE | 2020-03-31 08:11 | NUR ---
awake in bed eating breakfast; no apparent distress noted; pt offers no complaints; iv intact; afib on monitor; call light within reach; will continue to monitor
--- NOTE | 2020-03-31 10:05 | NUR ---
awake in bed; no apparent distress noted; iv intact; afib on monitor; call light within reach; will continue to monitor
--- NOTE | 2020-03-31 10:15 | NUR ---
bp reviewed with MD; orders received to hold atenolol and coreg this am;
--- NOTE | 2020-03-31 10:30 | NUR ---
Dr Small present at bedside to assess pt and discuss plan of care
--- NOTE | 2020-03-31 11:32 | NUR ---
proposal lead writer spoke with Criss Armstrong pharmedwar in regards to no repeat INR this morning, pending discharge and coumadin; order to be placed
--- NOTE | 2020-03-31 12:02 | NUR ---
awake in bed; no apparent distress noted; pt offers no complaints; iv intact; afib on monitor; call light within reach; will continue to monitor
[2020-03-31 13:02] LABS: INTERNATIONAL NORMALIZED RATIO 1.6 RATIO (0.7-1.3); PROTHROMBIN TIME 15.5 SECONDS (9.0-12.5)
--- NOTE | 2020-03-31 13:26 | NUR ---
INR reviewed with Dr Small; pt to resumed coumadin at home
--- NOTE | 2020-03-31 13:45 | NUR ---
discharge instructions reviewed in great detail; iv removed with cath tip intact;
--- NOTE | 2020-03-31 14:10 | NUR ---
Discharge instructions given. Patient verbalizes understanding of same. Discharged in stable condition via Wheelchair to Home with family. All belongings sent with pt.
== END 2020-03-31 14:10 | disposition home or self-care (01) ==
LOC: ED 09:59 → ED-I 13:24 → ED 13:39 → ICU 13:40
PROVIDERS: Family Medicine; Internal Medicine; ADMIT Internal Medicine; ATTEND Internal Medicine
DX: R07.9 Chest pain, unspecified (principal); I11.0 Hypertensive heart disease with heart failure; I50.20 Unspecified systolic (congestive) heart failure; I48.91 Unspecified atrial fibrillation; I25.10 Atherosclerotic heart disease of native coronary artery without angina pectoris; I25.5 Ischemic cardiomyopathy; E03.9 Hypothyroidism, unspecified; J44.9 Chronic obstructive pulmonary disease, unspecified; E78.5 Hyperlipidemia, unspecified; R51.9 Headache, unspecified; I25.2 Old myocardial infarction; I69.954 Hemiplegia and hemiparesis following unspecified cerebrovascular disease affecting left non-dominant side; I69.992 Facial weakness following unspecified cerebrovascular disease; Z87.891 Personal history of nicotine dependence; Z79.01 Long term (current) use of anticoagulants; Z86.711 Personal history of pulmonary embolism; Z20.828 Contact with and (suspected) exposure to other viral communicable diseases
CPT/HCPCS: Q9967

== ENCOUNTER 2020-04-10 06:48 | Day surgery (SDC) | payer OTHER ==
[~2020-04-10] VITALS: Ht 149.9 cm; Wt 83.9 kg
[~2020-04-10 06:48] MED LIST changes: +ATENOLOL25 MG PO; +BUSPIRONE HCL7.5 MG PO; +CARVEDILOL25 MG PO; +CELEXA20 MG PO; +PROVENTIL108 MCG/AC IN; +WARFARIN5 MG PO
[2020-04-10] MEDS ORDERED: LEVOTHYROXIN50 MCG PO (07:30)
[2020-04-10 08:57] VITALS: BP 96/79
[2020-04-10] MEDS ORDERED: HYDROCODONE/ACE1 TAB PO ×3 (09:09→09:14)
== END 2020-04-10 09:35 | disposition home or self-care (01) ==
LOC: ORM 06:48
PROVIDERS: ATTEND Anesthesiology Pain Medicine
DX: M17.11 Unilateral primary osteoarthritis, right knee (principal); Z01.84 Encounter for antibody response examination

== ENCOUNTER 2020-08-29 11:32 | Observation (INO) | payer BC, OTHER ==
[~2020-08-29 11:32] MED LIST changes: +LEVOTHYROXIN50 MCG PO
--- NOTE | 2020-08-29 11:32 | NUR ---
PT TO ROOM # 11 VIA EMS STRETCHER.
[2020-08-29 11:57] LABS: HEMATOCRIT 43.5 % (37.0-47.0); HEMOGLOBIN 13.9 g/dl (12.0-16.0); IMMATURE GRANULOCYTES 0.8 % (0.0-5.0); MEAN CELL VOLUME 97.8 fL CALC (80.0-100.0); MEAN CORPUSCULAR HGB 31.2 pG CALC (26.0-32.0); NEUT# 7.79 thou/uL (2.00-7.15); RED BLOOD COUNT 4.45 mill/uL (4.20-5.60); RED CELL DISTRI WIDTH 12.8 % (11.5-15.5)
[2020-08-29 12:09] LABS: ALBUMIN 4.5 g/dL (3.2-5.0); ALKALINE PHOSPHATASE 96 u/l (38-126); ANION GAP 12 (6-22 (CALC)); BILIRUBIN, TOTAL 0.7 mg/dL (0.0-1.4); BUN 13 mg/dL (7-17); BUN/CREATININE RATIO 19 (12-20 (CALC)); CARBON DIOXIDE 27 mmol/l (22-30); CHLORIDE 103 mmol/l (95-108); CREATININE 0.7 mg/dL (0.5-1.0); GFR > 60 ML/MIN (>=60 (CALC)); GFR FOR AFR.AMER. > 60 ML/MIN (>=60 (CALC)); LIPASE 118 u/l (23-300); MAGNESIUM 1.8 mg/dL (1.6-2.3); POTASSIUM 4.1 mmol/l (3.5-5.1); SGOT/AST 39 u/l (14-36); SODIUM 137 mmol/l (137-146); TOTAL PROTEIN 8.2 g/dL (6.3-8.2)
[2020-08-29 12:17] LABS: D-DIMER 0.36 mg/L (0.19-0.60)
[2020-08-29 12:24] LABS: ACT PARTIAL THROMBO TIME 23.1 SECONDS (20.0-32.5)
[2020-08-29 12:28] LABS: PROTHROMBIN TIME 9.8 SECONDS (9.0-12.5)
[2020-08-29] MEDS ORDERED: LEVOTHYROXIN75 MCG PO (13:19)
[2020-08-29] MEDS ORDERED: NITROGLYCERIN0.4 MG SL (13:22)
--- NOTE | 2020-08-29 14:20 | NUR ---
PATIENT RECEIVED FROM ED AT THIS TIME TO FLOOR. PATIENT ALERT AND ORIENTED X 3 PATIENT ORIENTED TO ROOM AND SURROUNDINGS AT THIS TIME. GERIATRIC PHYSICIAN DONE AT THIS TIME. LUNG SOUNDS ARE CLEAR THROUGHOUT ALL LUNG VILLA. BOWEL SOUNDS ARE PRESENT IN ALL FOUR QUADRANTS AND PATIENT STATES LAST BOWEL MOVEMENT WAS ON 08/28/20 AND IT WAS "NORMAL FOR HER". PATIENT STATES SHE HAS HISTORY OF PAST CVA AND IT EFFECTED HER LEFT SIDE. PATIENT ABLE TO MOVE ALL FOUR EXTREMITIES WITHOUT RESISTANCE AND OR DEFICITES AT THIS TIME. GRASP WERE STRONG AND EQUAL AND WITHOUT DEFICITS. PATIENT DENIES ANY PAIN AT THIS TIME AND DENIES USE OF ALCOHOL AND OR ILLEGAL DRUGS. PATIENT DID STATE "I HAVE BEEN USING PAIN MEDICATIONS FROM A FRIEND FROM TIME TO TIME". PATIENT DOES HAVE TELE MONITOR IN PLACE AND IS BEING MONITORED BY ED. SIDERAILS ARE UP X 3 AND CALL LIGHT IS WITHIN REACH.
[2020-08-29 14:35] VITALS: BP 116/75
--- NOTE | 2020-08-29 15:18 | NUR ---
PT note Patient is screened for PT intervention and no needs are identified at this time
--- NOTE | 2020-08-29 16:21 | NUR ---
PATIENT LAYING IN BED WITH EYES CLOSED. RESPIRATIONS EASY AND UNLABORED AT THIS TIME. SIDERAILS ARE UP X 3 CALL LIGHT IS WITHIN REACH.
[2020-08-29 17:20] LABS: URINE BILIRUBIN - DIPSTICK NEGATIVE (NEGATIVE); URINE BLOOD DIPSTICK NEGATIVE (NEGATIVE); URINE COLOR YELLOW; URINE GLUCOSE - DIPSTICK NEGATIVE (NEGATIVE); URINE KETONE NEGATIVE (NEGATIVE); URINE LEUK ESTERASE NEGATIVE (NEGATIVE); URINE PROTEIN - DIPSTICK NEGATIVE (NEG-TRACE); URINE SPECIFIC GRAVITY 1.015; URINE UROBILINOGEN - DIPSTICK 0.2 E.U./dL (0.2)
[2020-08-29 17:21] LABS: URINE NITRITE - DIPSTICK NEGATIVE (Negative)
--- NOTE | 2020-08-29 18:46 | NUR ---
PATIENT TAKEN DOWN TO CT SCAN AT THIS TIME.
--- NOTE | 2020-08-29 19:00 | NUR ---
REPORT RECEIVED FROM Angel Luis VILLANUEVA RN. CARE OF PT ASSUMED AT THIS TIME.
[2020-08-29 19:10] VITALS: BP 115/63
--- NOTE | 2020-08-29 20:05 | NUR ---
PHYSICAL ASSESMENT COMPLETE. SCHEDULED MEDICATIONS ADMINISTERED, SEE E-MAR. PLAN OF CARE REVIEWED, PT VERBALIZES UNDERSTANDING. GINGERALE PROVIDED PER PTS REQUEST, DENIES FURTHER NEEDS AT THIS TIME. CALL ARANGO WITHIN REACH, AGREES TO CALL PRN.
[2020-08-30 00:07] VITALS: BP 101/50
--- NOTE | 2020-08-30 00:10 | NUR ---
PT LAYING IN BED WITH EYES CLOSED, NO APPARENT DISTRESS, RESPIRATIONS REGULAR AND UNLABORED. APPEARS TO BE SLEEPING COMFORTABLY. CALL ARANGO REMAINS WITHIN REACH.
--- NOTE | 2020-08-30 04:10 | NUR ---
RYAN, BOILER ATTENDANT IN ROOM TO DRAW AM LABS.
[2020-08-30 04:26] VITALS: BP 100/54
[2020-08-30 06:49] LABS: HEMATOCRIT 45.6 % (37.0-47.0); HEMOGLOBIN 14.4 g/dl (12.0-16.0); IMMATURE GRANULOCYTES 1.1 % (0.0-5.0); MEAN CELL VOLUME 98.5 fL CALC (80.0-100.0); MEAN CORPUSCULAR HGB 31.1 pG CALC (26.0-32.0); MEAN CORPUSCULAR HGB CONC 31.6 g/dL CAL (32.0-36.0); NEUT# 20.64 thou/uL (2.00-7.15); RED BLOOD COUNT 4.63 mill/uL (4.20-5.60); RED CELL DISTRI WIDTH 12.6 % (11.5-15.5)
[2020-08-30 07:15] VITALS: BP 101/63
[2020-08-30 07:23] LABS: ALBUMIN 4.6 g/dL (3.2-5.0); ALKALINE PHOSPHATASE 102 u/l (38-126); ANION GAP 14 (6-22 (CALC)); BILIRUBIN, TOTAL 0.5 mg/dL (0.0-1.4); BUN 11 mg/dL (7-17); BUN/CREATININE RATIO 19 (12-20 (CALC)); CALCULATED LDLCHOLESTEROL 102 mg/dL (62-129 (CALC)); CARBON DIOXIDE 23 mmol/l (22-30); CHLORIDE 102 mmol/l (95-108); CHOLESTEROL HDL RATIO 2.3 (<4.4 (CALC)); CREATININE 0.6 mg/dL (0.5-1.0); GFR > 60 ML/MIN (>=60 (CALC)); GFR FOR AFR.AMER. > 60 ML/MIN (>=60 (CALC)); HDL CHOLESTEROL 93 mg/dL (>=40); MAGNESIUM 1.8 mg/dL (1.6-2.3); POTASSIUM 4.4 mmol/l (3.5-5.1); SGOT/AST 31 u/l (14-36); SODIUM 134 mmol/l (137-146); TOTAL CHOLESTEROL 211 mg/dl (0-199); TOTAL TRIGLYCERIDES 83 mg/dl (30-149); VLDL CHOLESTROL 17 mg/dl (1-41 (CALC))
--- NOTE | 2020-08-30 10:33 | NUR ---
PT AWAKE, ALERT, ORIENTED X 3. LUNGS DECREASED, RA. PT PROVIDED FIORICET PER HEADACHE, STATES THAT SHE REALLY DOES NOT FEEL LIKE GOING HOME TODAY. DR ALCALA IN ROOM EARLIER EXPLAINED THE NEGATIVE FINDINGS.
[2020-08-30 10:46] VITALS: BP 95/64
[2020-08-30 14:45] VITALS: BP 103/65
--- NOTE | 2020-08-30 14:50 | NUR ---
PT TO CT AND BACK, PROVIDED ROUTINE MEDS ORDERED. NO CHANGE IN STATUS SHE RESTS IN THE BED.
--- NOTE | 2020-08-30 18:04 | NUR ---
PT REMAINS BEFORE, NO CHANGE IN STATUS.
[2020-08-30 19:17] VITALS: BP 109/51
--- NOTE | 2020-08-30 20:02 | NUR ---
PHYSICAL ASSESMENT COMPLETE. PT CURRENTLY DENIES PAIN OR DISCOMFORT. SCHEDULED MEDICATIONS AND PRN MEDICATION ADMINISTERED, SEE E-MAR. PT DENIES ANY NEEDS AT THIS TIME. PLAN OF CARE REVIEWED, PT DENIES QUESTIONS, VERBALIZES UNDERSTANDING. ITEMS WITHIN REACH, BED LOCKED IN LOW POSITION W/ BEDRAILS UP X2. CALL ARANGO WITHIN REACH, AGREES TO CALL PRN.
[2020-08-31 00:17] VITALS: BP 104/69
--- NOTE | 2020-08-31 00:41 | NUR ---
PT LAYING IN BED WITH EYES CLOSED, APPEARS TO BE SLEEPING, APPEARS COMFORTABLE AND IN NO DISTRESS. RESPIRATIONS REGULAR AND UNLABORED. ITEMS REMAIN WITHIN REACH, CALL ARANGO REMAINS WITHIN REACH. BED REMAINS LOCKED AND IN LOW POSITION WITH BEDRAILS UP X2. WILL CONTINUE TO MONITOR.
[2020-08-31 03:29] VITALS: BP 100/65
[2020-08-31 07:36] VITALS: BP 102/66
--- NOTE | 2020-08-31 08:15 | NUR ---
PT AWAKE, ALERT, ORIENTED X 3. LUNGS CLEAR BUT DIMINISHED, RA. PT BELIEVES THAT SHE MAY BE GOING HOME TODAY. 14 BEAT RUN OF [place] SEEN, [place] AWARE. PT ASYMPTOMATIC.
[2020-08-31 10:03] LABS: HEMATOCRIT 43.7 % (37.0-47.0); HEMOGLOBIN 13.9 g/dl (12.0-16.0); IMMATURE GRANULOCYTES 1.1 % (0.0-5.0); MEAN CELL VOLUME 100.5 fL CALC (80.0-100.0); MEAN CORPUSCULAR HGB CONC 31.8 g/dL CAL (32.0-36.0); NEUT# 11.53 thou/uL (2.00-7.15); RED BLOOD COUNT 4.35 mill/uL (4.20-5.60); RED CELL DISTRI WIDTH 12.9 % (11.5-15.5)
[2020-08-31] MEDS ORDERED: ADLT ASA LOW81 MG PO (10:39)
[2020-08-31] MEDS ORDERED: PROTONIX40 M2 PO (10:39)
[2020-08-31] MEDS ORDERED: LASIX20 MG PO (10:40)
[2020-08-31 10:58] LABS: ALBUMIN 4.3 g/dL (3.2-5.0); ALKALINE PHOSPHATASE 71 u/l (38-126); BILIRUBIN, TOTAL 0.6 mg/dL (0.0-1.4); BUN 13 mg/dL (7-17); BUN/CREATININE RATIO 16 (12-20 (CALC)); CHLORIDE 101 mmol/l (95-108); CREATININE 0.8 mg/dL (0.5-1.0); GFR > 60 ML/MIN (>=60 (CALC)); GFR FOR AFR.AMER. > 60 ML/MIN (>=60 (CALC)); MAGNESIUM 1.9 mg/dL (1.6-2.3); SGOT/AST 31 u/l (14-36); SODIUM 136 mmol/l (137-146); TOTAL PROTEIN 7.7 g/dL (6.3-8.2)
[2020-08-31 11:02] LABS: ANION GAP 8 (6-22 (CALC)); CARBON DIOXIDE 30 mmol/l (22-30); POTASSIUM 3.3 mmol/l (3.5-5.1)
[2020-08-31 11:05] VITALS: BP 95/61
--- NOTE | 2020-08-31 13:11 | NUR ---
PT HAS BEEN DISCHARGED TO HOME. PT VERBALIZED UNDERSTANDING OF DC INSTRUCTIONS, TAKEN BY WHEELCHAIR TO VEHICLE. PT LEAVES [facility] IN STABLE CONDITION. PT AWARE OF URGENCY TO FOLLOW UP WITH DR PEREZ.
== END 2020-08-31 12:59 | disposition home or self-care (01) | DRG 313 ==
LOC: ED 11:32 → ED-I 13:22 → ED 13:39 → MS2 13:40
PROVIDERS: Nurse Practitioner; ADMIT Internal Medicine; ATTEND Internal Medicine
DX: R07.89 Other chest pain (principal); I50.22 Chronic systolic (congestive) heart failure; I47.2 Ventricular tachycardia; I48.20 Chronic atrial fibrillation, unspecified; I69.354 Hemiplegia and hemiparesis following cerebral infarction affecting left non-dominant side; I11.0 Hypertensive heart disease with heart failure; I25.5 Ischemic cardiomyopathy; J44.9 Chronic obstructive pulmonary disease, unspecified; E78.5 Hyperlipidemia, unspecified; K21.9 Gastro-esophageal reflux disease without esophagitis; E03.9 Hypothyroidism, unspecified; R20.0 Anesthesia of skin; R51.9 Headache, unspecified; F41.9 Anxiety disorder, unspecified; F32.9 Major depressive disorder, single episode, unspecified; I25.2 Old myocardial infarction; Z86.711 Personal history of pulmonary embolism; Z87.891 Personal history of nicotine dependence; Z20.822 Contact with and (suspected) exposure to COVID-19
CPT/HCPCS: G0378; J1650; Q9967; S0164

== ENCOUNTER 2021-05-15 08:43 | Emergency (ER) | payer MEDICARE, OTHER ==
[~2021-05-15] VITALS: Ht 144.8 cm; Wt 80.0 kg
[~2021-05-15 08:43] MED LIST changes: +ADLT ASA LOW81 MG PO; +LASIX20 MG PO; +NITROGLYCERIN0.4 MG SL; +PROTONIX40 M2 PO
[2021-05-15] MEDS ORDERED: NAPROXEN500 MG PO (10:37)
[2021-05-15 11:00] VITALS: BP 136/82
== END 2021-05-15 11:00 | disposition home or self-care (01) ==
LOC: ED 08:43
DX: M19.032 Primary osteoarthritis, left wrist (principal); I11.0 Hypertensive heart disease with heart failure; I50.9 Heart failure, unspecified; J44.9 Chronic obstructive pulmonary disease, unspecified; I48.91 Unspecified atrial fibrillation; I25.2 Old myocardial infarction; Z86.73 Personal history of transient ischemic attack (TIA), and cerebral infarction without residual deficits

== ENCOUNTER 2021-08-14 07:15 | Inpatient (IN) | payer MEDICARE, OTHER ==
[2021-08-14] VITALS (29 sets, daily range): BP systolic 93–132; BP diastolic 52–99
[~2021-08-14] VITALS: Ht 144.8 cm; Wt 84.0 kg
[~2021-08-14 07:15] MED LIST changes: +NAPROXEN500 MG PO
[2021-08-14 07:37] LABS: GFR > 60 ML/MIN (>=60 (CALC)); GFR FOR AFR.AMER. > 60 ML/MIN (>=60 (CALC))
[2021-08-14 07:38] LABS: HEMATOCRIT 47.6 % (37.0-47.0); HEMOGLOBIN 15.5 g/dl (12.0-16.0); IMMATURE GRANULOCYTES 0.3 % (0.0-5.0); MEAN CELL VOLUME 98.6 fL CALC (80.0-100.0); MEAN CORPUSCULAR HGB 32.1 pG CALC (26.0-32.0); MEAN CORPUSCULAR HGB CONC 32.6 g/dL CAL (32.0-36.0); NEUT# 9.67 thou/uL (2.00-7.15); RED BLOOD COUNT 4.83 mill/uL (4.20-5.60); RED CELL DISTRI WIDTH 12.7 % (11.5-15.5)
[2021-08-14 08:23] LABS: ALBUMIN 3.6 g/dL (3.2-5.0); ALKALINE PHOSPHATASE 89 u/l (38-126); ANION GAP 12 (6-22 (CALC)); BILIRUBIN, TOTAL 0.4 mg/dL (0.0-1.4); BUN 13 mg/dL (7-17); BUN/CREATININE RATIO 17 (12-20 (CALC)); CHLORIDE 103 mmol/l (95-108); CREATININE 0.7 mg/dL (0.5-1.0); GFR > 60 ML/MIN (>=60 (CALC)); GFR FOR AFR.AMER. > 60 ML/MIN (>=60 (CALC)); POTASSIUM 3.7 mmol/l (3.5-5.1); SGOT/AST 31 u/l (14-36); SODIUM 133 mmol/l (137-146); TOTAL PROTEIN 6.8 g/dL (6.3-8.2)
[2021-08-14 08:26] LABS: CARBON DIOXIDE 22 mmol/l (22-30)
[2021-08-14 09:30] LABS: URINE BILIRUBIN - DIPSTICK NEGATIVE (NEGATIVE); URINE BLOOD DIPSTICK NEGATIVE (NEGATIVE); URINE COLOR YELLOW; URINE GLUCOSE - DIPSTICK NEGATIVE (NEGATIVE); URINE KETONE NEGATIVE (NEGATIVE); URINE LEUK ESTERASE NEGATIVE (NEGATIVE); URINE PROTEIN - DIPSTICK NEGATIVE (NEG-TRACE); URINE SPECIFIC GRAVITY <=1.005; URINE UROBILINOGEN - DIPSTICK 0.2 E.U./dL (0.2)
[2021-08-14 09:35] LABS: URINE NITRITE - DIPSTICK NEGATIVE (Negative)
[2021-08-14 09:50] LABS: C-REACTIVE PROTEIN 0.8 mg/dL (0-0.9); CHOLESTEROL HDL RATIO 3.7 (<4.4 (CALC))
[2021-08-14] MEDS ORDERED: ALPRAZOLAM0.5 MG PO (12:07)
[2021-08-14] MEDS ORDERED: CARVEDILOL25 MG PO (12:08)
[2021-08-14] MEDS ORDERED: NAPROXEN250 MG PO (12:10)
[2021-08-15] VITALS (39 sets, daily range): BP systolic 83–131; BP diastolic 54–103
[2021-08-15 05:22] LABS: HEMATOCRIT 46.6 % (37.0-47.0); HEMOGLOBIN 15.2 g/dl (12.0-16.0); MEAN CELL VOLUME 98.5 fL CALC (80.0-100.0); MEAN CORPUSCULAR HGB 32.1 pG CALC (26.0-32.0); MEAN CORPUSCULAR HGB CONC 32.6 g/dL CAL (32.0-36.0); RED BLOOD COUNT 4.73 mill/uL (4.20-5.60); RED CELL DISTRI WIDTH 12.4 % (11.5-15.5)
[2021-08-15 05:32] LABS: ANION GAP 12 (6-22 (CALC)); BUN 9 mg/dL (7-17); BUN/CREATININE RATIO 13 (12-20 (CALC)); CARBON DIOXIDE 25 mmol/l (22-30); CHLORIDE 104 mmol/l (95-108); CREATININE 0.7 mg/dL (0.5-1.0); GFR > 60 ML/MIN (>=60 (CALC)); GFR FOR AFR.AMER. > 60 ML/MIN (>=60 (CALC)); MAGNESIUM 2.1 mg/dL (1.6-2.3); POTASSIUM 4.2 mmol/l (3.5-5.1); SODIUM 138 mmol/l (137-146)
[2021-08-16] VITALS (9 sets, daily range): BP systolic 99–122; BP diastolic 60–86
[2021-08-16 05:39] LABS: HEMATOCRIT 49.6 % (37.0-47.0); MEAN CELL VOLUME 98.6 fL CALC (80.0-100.0); MEAN CORPUSCULAR HGB 31.8 pG CALC (26.0-32.0); MEAN CORPUSCULAR HGB CONC 32.3 g/dL CAL (32.0-36.0); RED BLOOD COUNT 5.03 mill/uL (4.20-5.60); RED CELL DISTRI WIDTH 12.4 % (11.5-15.5)
[2021-08-16 05:59] LABS: ANION GAP 13 (6-22 (CALC)); BUN 15 mg/dL (7-17); BUN/CREATININE RATIO 20 (12-20 (CALC)); CARBON DIOXIDE 27 mmol/l (22-30); CHLORIDE 103 mmol/l (95-108); CREATININE 0.8 mg/dL (0.5-1.0); GFR > 60 ML/MIN (>=60 (CALC)); GFR FOR AFR.AMER. > 60 ML/MIN (>=60 (CALC)); POTASSIUM 4.3 mmol/l (3.5-5.1); SODIUM 139 mmol/l (137-146)
== END 2021-08-16 13:33 | disposition home or self-care (01) | DRG 69 ==
LOC: ED 07:15 → ED-I 08:40 → ED 08:54 → ICU 08:55
PROVIDERS: Family Medicine; ADMIT Hospitalist; ATTEND Hospitalist
DX: G45.9 Transient cerebral ischemic attack, unspecified (principal); I69.954 Hemiplegia and hemiparesis following unspecified cerebrovascular disease affecting left non-dominant side; I50.22 Chronic systolic (congestive) heart failure; I11.0 Hypertensive heart disease with heart failure; J44.9 Chronic obstructive pulmonary disease, unspecified; I48.91 Unspecified atrial fibrillation; E03.9 Hypothyroidism, unspecified; G43.909 Migraine, unspecified, not intractable, without status migrainosus; I25.10 Atherosclerotic heart disease of native coronary artery without angina pectoris; F40.240 Claustrophobia; F41.9 Anxiety disorder, unspecified; I25.2 Old myocardial infarction; Z86.711 Personal history of pulmonary embolism; Z87.891 Personal history of nicotine dependence; Z95.818 Presence of other cardiac implants and grafts; Z20.822 Contact with and (suspected) exposure to COVID-19
CPT/HCPCS: J1650; J2060; Q9967

== ENCOUNTER 2022-03-25 09:26 | Inpatient (IN) | payer MEDICARE, MEDICAID ==
[~2022-03-25] VITALS: Ht 149.9 cm; Wt 82.8 kg
[2022-03-25] VITALS (13 sets, daily range): BP systolic 86–152; BP diastolic 36–103
[~2022-03-25 09:26] MED LIST changes: +ALPRAZOLAM0.5 MG PO; +ASPIRIN325 MG PO; +CITALOPRAM20 M1 PO; +MECLIZINE25 MG PO; +NAPROXEN250 MG PO
[2022-03-25 09:55] LABS: HEMATOCRIT 45.6 % (37.0-47.0); HEMOGLOBIN 15.3 g/dl (12.0-16.0); IMMATURE GRANULOCYTES 0.4 % (0.0-5.0); MEAN CELL VOLUME 96.4 fL CALC (80.0-100.0); MEAN CORPUSCULAR HGB 32.3 pG CALC (26.0-32.0); MEAN CORPUSCULAR HGB CONC 33.6 g/dL CAL (32.0-36.0); NEUT# 11.55 thou/uL (2.00-7.15); RED BLOOD COUNT 4.73 mill/uL (4.20-5.60); RED CELL DISTRI WIDTH 12.3 % (11.5-15.5)
[2022-03-25 10:09] LABS: ALBUMIN 4.9 g/dL (3.2-5.0); ALKALINE PHOSPHATASE 86 u/l (38-126); ANION GAP 12 (6-22 (CALC)); BUN 9 mg/dL (7-17); BUN/CREATININE RATIO 13 (12-20 (CALC)); CARBON DIOXIDE 23 mmol/l (22-30); CHLORIDE 104 mmol/l (95-108); CREATININE 0.7 mg/dL (0.5-1.0); GFR FOR AFR.AMER. > 60 ML/MIN (>=60 (CALC)); GFR OTHER RACES > 60 ML/MIN (>=60 (CALC)); SGOT/AST 44 u/l (14-36); SODIUM 135 mmol/l (137-146); TOTAL PROTEIN 9.1 g/dL (6.3-8.2)
[2022-03-25 10:11] LABS: BILIRUBIN, TOTAL 0.9 mg/dL (0.0-1.4)
[2022-03-25] MEDS ORDERED: LISINOPRIL2.5 MG PO (11:33)
[2022-03-26] VITALS (10 sets, daily range): BP systolic 91–128; BP diastolic 53–76
[2022-03-26 05:35] LABS: HEMATOCRIT 40.5 % (37.0-47.0); HEMOGLOBIN 13.5 g/dl (12.0-16.0); MEAN CELL VOLUME 98.8 fL CALC (80.0-100.0); MEAN CORPUSCULAR HGB 32.9 pG CALC (26.0-32.0); MEAN CORPUSCULAR HGB CONC 33.3 g/dL CAL (32.0-36.0); RED BLOOD COUNT 4.1 mill/uL (4.20-5.60); RED CELL DISTRI WIDTH 12.3 % (11.5-15.5)
[2022-03-26 05:59] LABS: BUN 13 mg/dL (7-17); BUN/CREATININE RATIO 20 (12-20 (CALC)); CARBON DIOXIDE 20 mmol/l (22-30); CHLORIDE 109 mmol/l (95-108); CREATININE 0.7 mg/dL (0.5-1.0); GFR FOR AFR.AMER. > 60 ML/MIN (>=60 (CALC)); GFR OTHER RACES > 60 ML/MIN (>=60 (CALC)); MAGNESIUM 1.8 mg/dL (1.6-2.3); POTASSIUM 4.4 mmol/l (3.5-5.1)
[2022-03-26 06:12] LABS: ANION GAP 17 (6-22 (CALC)); SODIUM 142 mmol/l (137-146)
[2022-03-26 11:02] LABS: URINE BILIRUBIN - DIPSTICK NEGATIVE (NEGATIVE); URINE BLOOD DIPSTICK NEGATIVE (NEGATIVE); URINE COLOR YELLOW; URINE GLUCOSE - DIPSTICK NEGATIVE (NEGATIVE); URINE KETONE NEGATIVE (NEGATIVE); URINE LEUK ESTERASE NEGATIVE (NEGATIVE); URINE NITRITE - DIPSTICK NEGATIVE (Negative); URINE PROTEIN - DIPSTICK NEGATIVE (NEG-TRACE); URINE SPECIFIC GRAVITY 1.015; URINE UROBILINOGEN - DIPSTICK 0.2 E.U./dL (0.2)
[2022-03-27] VITALS (10 sets, daily range): BP systolic 104–145; BP diastolic 57–92
[2022-03-28 03:45] VITALS: BP 147/87
[2022-03-28 07:43] VITALS: BP 152/91
[2022-03-28 10:34] VITALS: BP 130/92
[2022-03-28 10:35] VITALS: BP 130/92
[2022-03-28 15:55] VITALS: BP 140/79
[2022-03-28 19:03] VITALS: BP 139/92
[2022-03-29] VITALS (10 sets, daily range): BP systolic 126–142; BP diastolic 83–96
[2022-03-29 07:19] LABS: HEMATOCRIT 44.5 % (37.0-47.0); HEMOGLOBIN 14.6 g/dl (12.0-16.0); MEAN CELL VOLUME 98.7 fL CALC (80.0-100.0); MEAN CORPUSCULAR HGB 32.4 pG CALC (26.0-32.0); MEAN CORPUSCULAR HGB CONC 32.8 g/dL CAL (32.0-36.0); RED BLOOD COUNT 4.51 mill/uL (4.20-5.60); RED CELL DISTRI WIDTH 12.1 % (11.5-15.5)
[2022-03-29 07:35] LABS: BUN 18 mg/dL (7-17); BUN/CREATININE RATIO 27 (12-20 (CALC)); CHLORIDE 100 mmol/l (95-108); CREATININE 0.7 mg/dL (0.5-1.0); GFR FOR AFR.AMER. > 60 ML/MIN (>=60 (CALC)); GFR OTHER RACES > 60 ML/MIN (>=60 (CALC)); POTASSIUM 4.1 mmol/l (3.5-5.1); SODIUM 138 mmol/l (137-146)
[2022-03-29 08:26] LABS: ANION GAP 10 (6-22 (CALC)); CARBON DIOXIDE 32 mmol/l (22-30); MAGNESIUM 2.3 mg/dL (1.6-2.3)
[2022-03-30] VITALS (9 sets, daily range): BP systolic 121–150; BP diastolic 67–82
[2022-03-31 07:12] VITALS: BP 119/84
[2022-03-31 08:32] VITALS: BP 136/88
[2022-03-31] MEDS ORDERED: PULMICORT0.5 MG IN (11:33)
[2022-03-31] MEDS ORDERED: LOPRESSOR 550 MG/TAB PO (11:33)
[2022-03-31] MEDS ORDERED: PREDNISONE10 MG PO (11:34)
[2022-03-31] MEDS ORDERED: VIBRAMYCIN100 M2 PO (11:35)
[2022-03-31] MEDS ORDERED: BIOTUSSIN PO (11:35)
== END 2022-03-31 12:48 | disposition home or self-care (01) | DRG 193 ==
LOC: ED 09:26 → ED-I 10:50 → ED 11:06 → MS2 11:07
PROVIDERS: Family Medicine; ADMIT Internal Medicine; ATTEND Internal Medicine
DX: J18.9 Pneumonia, unspecified organism (principal); J96.01 Acute respiratory failure with hypoxia; J44.1 Chronic obstructive pulmonary disease with (acute) exacerbation; I50.22 Chronic systolic (congestive) heart failure; I69.954 Hemiplegia and hemiparesis following unspecified cerebrovascular disease affecting left non-dominant side; J44.0 Chronic obstructive pulmonary disease with (acute) lower respiratory infection; I11.0 Hypertensive heart disease with heart failure; I48.91 Unspecified atrial fibrillation; E03.9 Hypothyroidism, unspecified; F32.A Depression, unspecified; F41.9 Anxiety disorder, unspecified; E78.5 Hyperlipidemia, unspecified; E66.9 Obesity, unspecified; I25.2 Old myocardial infarction; F17.210 Nicotine dependence, cigarettes, uncomplicated; Z86.711 Personal history of pulmonary embolism; Z95.818 Presence of other cardiac implants and grafts; Z20.822 Contact with and (suspected) exposure to COVID-19
CPT/HCPCS: J1650

== ENCOUNTER 2022-07-14 09:49 | Emergency (ER) | payer MEDICARE, MEDICAID ==
[~2022-07-14] VITALS: Ht 149.9 cm; Wt 90.0 kg
[~2022-07-14 09:49] MED LIST changes: +ALPRAZOLAM XR0.5 MG PO; +ASPIRIN 81 LOW81 MG; +BIOTUSSIN PO; +DICLOFENAC SODIUM1 %; +LOPRESSOR 550 MG/TAB PO; +PULMICORT0.5 MG IN; +VIBRAMYCIN100 M2 PO
[2022-07-14 09:58] VITALS: BP 120/87
[2022-07-14 10:15] VITALS: BP 122/94
[2022-07-14 10:31] VITALS: BP 110/82
[2022-07-14 10:46] VITALS: BP 113/64
== END 2022-07-14 10:55 | disposition home or self-care (01) ==
LOC: ED 09:49 → LWOBS 10:52
DX: Z53.21 Procedure and treatment not carried out due to patient leaving prior to being seen by health care provider (principal)

== ENCOUNTER 2022-11-09 12:27 | Observation (INO) | payer MEDICARE, MEDICAID ==
[~2022-11-09] VITALS: Ht 149.9 cm; Wt 84.6 kg
[2022-11-09] VITALS (14 sets, daily range): BP systolic 79–122; BP diastolic 45–80
[2022-11-09 13:08] LABS: URINE BILIRUBIN - DIPSTICK NEGATIVE (NEGATIVE); URINE BLOOD DIPSTICK LARGE (NEGATIVE); URINE COLOR YELLOW; URINE GLUCOSE - DIPSTICK NEGATIVE (NEGATIVE); URINE KETONE NEGATIVE (NEGATIVE); URINE PROTEIN - DIPSTICK 100 mg/dL (NEG-TRACE); URINE SPECIFIC GRAVITY >=1.030; URINE UROBILINOGEN - DIPSTICK 0.2 E.U./dL (0.2)
[2022-11-09 13:08] LABS: BASO% 0.3 % (0-3); HEMATOCRIT 47.5 % (37.0-47.0); HEMOGLOBIN 15.4 g/dl (12.0-16.0); IMMATURE GRANULOCYTES 0.2 % (0.0-5.0); LYMPH% 11.9 % (15-41); MEAN CELL VOLUME 96.3 fL CALC (80.0-100.0); MEAN CORPUSCULAR HGB 31.2 pG CALC (26.0-32.0); MEAN CORPUSCULAR HGB CONC 32.4 g/dL CAL (32.0-36.0); MONO% 7.9 % (2-13); NEUT# 11.16 thou/uL (2.00-7.15); NEUT% 77.7 % (42-76); RED BLOOD COUNT 4.93 mill/uL (4.20-5.60)
[2022-11-09 13:12] LABS: URINE LEUK ESTERASE MODERATE (NEGATIVE); URINE NITRITE - DIPSTICK POSITIVE (Negative)
[2022-11-09 13:14] LABS: ALBUMIN 4.3 g/dL (3.2-5.0); ALKALINE PHOSPHATASE 79 u/l (38-126); ANION GAP 12 (6-22 (CALC)); BILIRUBIN, TOTAL 1.1 mg/dL (0.02-1.3); BUN 11 mg/dL (7-17); BUN/CREATININE RATIO 14 (12-20 (CALC)); CHLORIDE 106 mmol/l (95-108); CREATININE 0.8 mg/dL (0.5-1.0); GFR FOR AFR.AMER. > 60 ML/MIN (>=60 (CALC)); GFR OTHER RACES > 60 ML/MIN (>=60 (CALC)); LIPASE 64 u/l (23-300); POTASSIUM 3.8 mmol/l (3.5-5.1); SGOT/AST 37 u/l (14-36); SODIUM 137 mmol/l (137-146); TOTAL PROTEIN 7.9 g/dL (6.3-8.2)
[2022-11-09 13:15] LABS: CARBON DIOXIDE 23 mmol/l (22-30)
[2022-11-09 13:17] LABS: URINE BACTERIA MANY hpf; URINE WBC >100 WBC/hpf (0-5)
[2022-11-09 13:18] LABS: URINE SQUAMOUS EPITHELIAL CELL FEW EPI/hpf (0-FEW)
[2022-11-10] VITALS (8 sets, daily range): BP systolic 86–144; BP diastolic 48–85
[2022-11-10 05:16] LABS: HEMOGLOBIN 13.7 g/dl (12.0-16.0); MEAN CORPUSCULAR HGB 31.9 pG CALC (26.0-32.0); MEAN CORPUSCULAR HGB CONC 31.9 g/dL CAL (32.0-36.0); RED BLOOD COUNT 4.3 mill/uL (4.20-5.60); RED CELL DISTRI WIDTH 13.2 % (11.5-15.5)
[2022-11-10 05:42] LABS: ALBUMIN 3.6 g/dL (3.2-5.0); ALKALINE PHOSPHATASE 59 u/l (38-126); BILIRUBIN, TOTAL 0.7 mg/dL (0.02-1.3); BUN 13 mg/dL (7-17); BUN/CREATININE RATIO 18 (12-20 (CALC)); CARBON DIOXIDE 20 mmol/l (22-30); CHLORIDE 110 mmol/l (95-108); CREATININE 0.7 mg/dL (0.5-1.0); GFR FOR AFR.AMER. > 60 ML/MIN (>=60 (CALC)); GFR OTHER RACES > 60 ML/MIN (>=60 (CALC)); SODIUM 137 mmol/l (137-146); TOTAL PROTEIN 6.5 g/dL (6.3-8.2)
[2022-11-10 05:44] LABS: CHOLESTEROL HDL RATIO 3.2 (<4.4 (CALC)); MAGNESIUM 1.9 mg/dL (1.6-2.3)
[2022-11-10 05:48] LABS: ANION GAP 12 (6-22 (CALC)); POTASSIUM 4.9 mmol/l (3.5-5.1); SGOT/AST 71 u/l (14-36)
[2022-11-11] VITALS (8 sets, daily range): BP systolic 115–178; BP diastolic 63–109
[2022-11-11 05:31] LABS: BASO% 0.4 % (0-3); EOS% 1.3 % (0-8); HEMATOCRIT 46.2 % (37.0-47.0); HEMOGLOBIN 14.8 g/dl (12.0-16.0); IMMATURE GRANULOCYTES 0.3 % (0.0-5.0); LYMPH% 11.4 % (15-41); MEAN CELL VOLUME 98.5 fL CALC (80.0-100.0); MEAN CORPUSCULAR HGB 31.6 pG CALC (26.0-32.0); MONO% 5.4 % (2-13); NEUT# 12.65 thou/uL (2.00-7.15); NEUT% 81.2 % (42-76); RED BLOOD COUNT 4.69 mill/uL (4.20-5.60); RED CELL DISTRI WIDTH 13.1 % (11.5-15.5)
[2022-11-11 05:44] LABS: ALBUMIN 4.2 g/dL (3.2-5.0); ANION GAP 12 (6-22 (CALC)); BILIRUBIN, TOTAL 0.8 mg/dL (0.02-1.3); BUN 9 mg/dL (7-17); BUN/CREATININE RATIO 12 (12-20 (CALC)); CARBON DIOXIDE 21 mmol/l (22-30); CHLORIDE 108 mmol/l (95-108); CREATININE 0.8 mg/dL (0.5-1.0); GFR FOR AFR.AMER. > 60 ML/MIN (>=60 (CALC)); GFR OTHER RACES > 60 ML/MIN (>=60 (CALC)); SGOT/AST 87 u/l (14-36); SODIUM 137 mmol/l (137-146); TOTAL PROTEIN 7.8 g/dL (6.3-8.2)
[2022-11-11 05:46] LABS: ALKALINE PHOSPHATASE 90 u/l (38-126)
[2022-11-12 00:24] VITALS: BP 109/52
[2022-11-12 04:35] VITALS: BP 104/78
[2022-11-12 05:52] LABS: BASO% 0.1 % (0-3); HEMATOCRIT 43.7 % (37.0-47.0); IMMATURE GRANULOCYTES 0.4 % (0.0-5.0); LYMPH% 6.4 % (15-41); MEAN CELL VOLUME 98.9 fL CALC (80.0-100.0); MEAN CORPUSCULAR HGB 31.7 pG CALC (26.0-32.0); NEUT# 12.72 thou/uL (2.00-7.15); NEUT% 91.1 % (42-76); RED BLOOD COUNT 4.42 mill/uL (4.20-5.60); RED CELL DISTRI WIDTH 12.8 % (11.5-15.5)
[2022-11-12 06:07] LABS: ALBUMIN 4.1 g/dL (3.2-5.0); ALKALINE PHOSPHATASE 72 u/l (38-126); ANION GAP 14 (6-22 (CALC)); BILIRUBIN, TOTAL 0.6 mg/dL (0.02-1.3); BUN 13 mg/dL (7-17); BUN/CREATININE RATIO 18 (12-20 (CALC)); CHLORIDE 102 mmol/l (95-108); CREATININE 0.8 mg/dL (0.5-1.0); GFR FOR AFR.AMER. > 60 ML/MIN (>=60 (CALC)); GFR OTHER RACES > 60 ML/MIN (>=60 (CALC)); MAGNESIUM 1.8 mg/dL (1.6-2.3); POTASSIUM 4.2 mmol/l (3.5-5.1); SGOT/AST 43 u/l (14-36); SODIUM 138 mmol/l (137-146); TOTAL PROTEIN 7.2 g/dL (6.3-8.2)
[2022-11-12 06:09] LABS: CARBON DIOXIDE 26 mmol/l (22-30)
[2022-11-12 06:56] VITALS: BP 109/66
[2022-11-12 11:14] VITALS: BP 95/66
[2022-11-12] MEDS ORDERED: OMNICEF300 MG PO (12:57)
[2022-11-12] MEDS ORDERED: PREDNISONE10 MG PO (13:02)
[2022-11-12 14:31] VITALS: BP 105/47
== END 2022-11-12 15:15 ==
LOC: ED 12:27 → ED-I 13:01 → ED 13:01 → ED-I 15:25 → ED 15:55 → MS2 15:56
PROVIDERS: Nurse Practitioner; Nurse Practitioner Family; ADMIT Internal Medicine; ATTEND Internal Medicine
DX: N12 Tubulo-interstitial nephritis, not specified as acute or chronic (principal); B96.20 Unspecified Escherichia coli [E. coli] as the cause of diseases classified elsewhere; R07.9 Chest pain, unspecified; J44.1 Chronic obstructive pulmonary disease with (acute) exacerbation; J96.01 Acute respiratory failure with hypoxia; I11.0 Hypertensive heart disease with heart failure; I50.22 Chronic systolic (congestive) heart failure; I48.20 Chronic atrial fibrillation, unspecified; I25.10 Atherosclerotic heart disease of native coronary artery without angina pectoris; E03.9 Hypothyroidism, unspecified; I69.954 Hemiplegia and hemiparesis following unspecified cerebrovascular disease affecting left non-dominant side; E78.5 Hyperlipidemia, unspecified; F17.210 Nicotine dependence, cigarettes, uncomplicated; E66.01 Morbid (severe) obesity due to excess calories; I25.2 Old myocardial infarction; Z86.711 Personal history of pulmonary embolism; Z95.818 Presence of other cardiac implants and grafts
CPT/HCPCS: J1650

== ENCOUNTER 2023-06-09 10:37 | Inpatient (IN) | payer MEDICARE, MEDICAID ==
[~2023-06-09] VITALS: Ht 149.9 cm; Wt 88.5 kg
[2023-06-09] VITALS (13 sets, daily range): BP systolic 106–169; BP diastolic 58–109
[~2023-06-09 10:37] MED LIST changes: +OMNICEF300 MG PO
[2023-06-09 11:18] LABS: BASO% 0.4 % (0-3); EOS% 2.6 % (0-8); HEMATOCRIT 45.2 % (37.0-47.0); HEMOGLOBIN 14.7 g/dl (12.0-16.0); IMMATURE GRANULOCYTES 0.5 % (0.0-5.0); LYMPH% 18.7 % (15-41); MEAN CELL VOLUME 98.7 fL CALC (80.0-100.0); MEAN CORPUSCULAR HGB 32.1 pG CALC (26.0-32.0); MEAN CORPUSCULAR HGB CONC 32.5 g/dL CAL (32.0-36.0); MONO% 7.8 % (2-13); NEUT# 7.42 thou/uL (2.00-7.15); RED BLOOD COUNT 4.58 mill/uL (4.20-5.60); RED CELL DISTRI WIDTH 12.7 % (11.5-15.5)
[2023-06-09 11:33] LABS: ALBUMIN 4.3 g/dL (3.2-5.0); ALKALINE PHOSPHATASE 81 u/l (38-126); ANION GAP 10 (6-22 (CALC)); BILIRUBIN, TOTAL 0.5 mg/dL (0.02-1.3); BUN 12 mg/dL (7-17); BUN/CREATININE RATIO 20 (12-20 (CALC)); CARBON DIOXIDE 25 mmol/l (22-30); CHLORIDE 108 mmol/l (95-108); CREATININE 0.6 mg/dL (0.5-1.0); GFR FOR AFR.AMER. > 60 ML/MIN (>=60 (CALC)); GFR OTHER RACES > 60 ML/MIN (>=60 (CALC)); POTASSIUM 4.2 mmol/l (3.5-5.1); SODIUM 140 mmol/l (137-146); TOTAL PROTEIN 7.2 g/dL (6.3-8.2)
[2023-06-09 11:37] LABS: SGOT/AST 71 u/l (14-36)
[2023-06-09] MEDS ORDERED: methylPREDNISolone SODIUM SUCC 125 MG/2 ML SDV IV ONE (13:45)
[2023-06-09] MEDS ORDERED: IPRATROPIUM-Albuterol 0.5MG-2.5MG/3 ML NEB ONE (13:45)
[2023-06-09 15:34] LABS: URINE BILIRUBIN - DIPSTICK Negative (NEGATIVE); URINE BLOOD DIPSTICK Negative (NEGATIVE); URINE GLUCOSE - DIPSTICK Negative (NEGATIVE); URINE KETONE Negative (NEGATIVE); URINE LEUK ESTERASE Negative (NEGATIVE); URINE NITRITE - DIPSTICK Negative (Negative); URINE PROTEIN - DIPSTICK Negative (NEG-TRACE); URINE SPECIFIC GRAVITY 1.015; URINE UROBILINOGEN - DIPSTICK 0.2 E.U./dL (0.2)
[2023-06-09 15:35] LABS: URINE COLOR Yellow
[2023-06-09] MEDS ORDERED: ASPIRIN 81 MG/TAB PO ONE (16:10)
[2023-06-09] MEDS ORDERED: SODIUM CHLORIDE 0.9% 1,000 ML IV PRN (16:45)
[2023-06-09] MEDS ORDERED: DEXTROSE 250 ML IV PRN (16:45)
[2023-06-09] MEDS ORDERED: MAGNESIUM HYDROXIDE 30 ML UDC PO PRN (16:45)
[2023-06-09] MEDS ORDERED: ACETAMINOPHEN 325 MG/TAB PO PRN (16:45)
[2023-06-09] MEDS ORDERED: LABETALOL HCL 20 MG/ 4 ML CARTRG IV PRN (16:50)
[2023-06-09] MEDS ORDERED: IPRATROPIUM-Albuterol 0.5MG-2.5MG/3 ML NEB PRN (16:50)
[2023-06-09] MEDS ORDERED: AZITHROMYCIN 500 MG in SODIUM CHLORIDE 0.9% 250 ML IV ONE (17:40)
[2023-06-09] MEDS ORDERED: ATORVASTATIN CALCIUM 40 MG/TAB PO SCH (21:00)
[2023-06-09] MEDS ORDERED: methylPREDNISolone Sod Succ 40 MG/ML SDV IV SCH (21:00)
[2023-06-09] MEDS ORDERED: ENOXAPARIN SODIUM 40 MG/0.4 ML SYR SC SCH (21:00)
[2023-06-10] VITALS (8 sets, daily range): BP systolic 97–129; BP diastolic 45–86
[2023-06-10] MEDS ORDERED: LEVOTHYROXINE SODIUM 75 MCG/TAB PO SCH (06:00)
[2023-06-10 06:28] LABS: BASO% 0.1 % (0-3); HEMATOCRIT 43.2 % (37.0-47.0); HEMOGLOBIN 14.2 g/dl (12.0-16.0); IMMATURE GRANULOCYTES 0.6 % (0.0-5.0); LYMPH% 8.2 % (15-41); MEAN CELL VOLUME 98.2 fL CALC (80.0-100.0); MEAN CORPUSCULAR HGB 32.3 pG CALC (26.0-32.0); MEAN CORPUSCULAR HGB CONC 32.9 g/dL CAL (32.0-36.0); MONO% 3.9 % (2-13); NEUT# 13.99 thou/uL (2.00-7.15); NEUT% 87.2 % (42-76); RED BLOOD COUNT 4.4 mill/uL (4.20-5.60); RED CELL DISTRI WIDTH 12.5 % (11.5-15.5)
[2023-06-10 06:43] LABS: ALBUMIN 4.4 g/dL (3.2-5.0); ALKALINE PHOSPHATASE 79 u/l (38-126); ANION GAP 13 (6-22 (CALC)); BILIRUBIN, TOTAL 0.4 mg/dL (0.02-1.3); BUN 14 mg/dL (7-17); BUN/CREATININE RATIO 24 (12-20 (CALC)); CARBON DIOXIDE 23 mmol/l (22-30); CHLORIDE 107 mmol/l (95-108); CREATININE 0.6 mg/dL (0.5-1.0); GFR FOR AFR.AMER. > 60 ML/MIN (>=60 (CALC)); GFR OTHER RACES > 60 ML/MIN (>=60 (CALC)); MAGNESIUM 1.9 mg/dL (1.6-2.3); POTASSIUM 4.2 mmol/l (3.5-5.1); SGOT/AST 43 u/l (14-36); SODIUM 138 mmol/l (137-146); TOTAL PROTEIN 7.2 g/dL (6.3-8.2)
[2023-06-10] MEDS ORDERED: MIDAZOLAM HCL 2 MG/2 ML VIAL IV PRN (08:20)
[2023-06-10] MEDS ORDERED: ASPIRIN 81 MG/TAB PO SCH (09:00)
[2023-06-10] MEDS ORDERED: BUTALBITAL-APAP-CAFFEINE 50-325-40 TAB PO PRN (11:25)
[2023-06-10] MEDS ORDERED: LABETALOL HCL 20 MG/ 4 ML CARTRG IV PRN (12:00)
[2023-06-11 03:47] VITALS: BP 106/72
[2023-06-11 07:15] LABS: BASO% 0.1 % (0-3); HEMATOCRIT 42.6 % (37.0-47.0); HEMOGLOBIN 13.6 g/dl (12.0-16.0); LYMPH% 7.1 % (15-41); MEAN CELL VOLUME 101.4 fL CALC (80.0-100.0); MEAN CORPUSCULAR HGB 32.4 pG CALC (26.0-32.0); MEAN CORPUSCULAR HGB CONC 31.9 g/dL CAL (32.0-36.0); MONO% 3.9 % (2-13); NEUT# 16.22 thou/uL (2.00-7.15); NEUT% 87.9 % (42-76); RED BLOOD COUNT 4.2 mill/uL (4.20-5.60); RED CELL DISTRI WIDTH 12.7 % (11.5-15.5)
[2023-06-11 07:16] VITALS: BP 115/73
[2023-06-11 07:18] LABS: ALBUMIN 4.4 g/dL (3.2-5.0); ALKALINE PHOSPHATASE 73 u/l (38-126); ANION GAP 13 (6-22 (CALC)); BILIRUBIN, TOTAL 0.4 mg/dL (0.02-1.3); BUN 16 mg/dL (7-17); BUN/CREATININE RATIO 24 (12-20 (CALC)); CARBON DIOXIDE 23 mmol/l (22-30); CHLORIDE 109 mmol/l (95-108); CREATININE 0.7 mg/dL (0.5-1.0); GFR FOR AFR.AMER. > 60 ML/MIN (>=60 (CALC)); GFR OTHER RACES > 60 ML/MIN (>=60 (CALC)); MAGNESIUM 1.9 mg/dL (1.6-2.3); POTASSIUM 4.5 mmol/l (3.5-5.1); SGOT/AST 39 u/l (14-36); SODIUM 141 mmol/l (137-146); TOTAL PROTEIN 7.2 g/dL (6.3-8.2)
[2023-06-11] MEDS ORDERED: [UNRECOGNIZED DRUG - OTHER] IM SCH (09:00)
[2023-06-11] MEDS ORDERED: PNEUMOCOCCAL 20-VALENT CONJUGA 0.5 ML/DOSE INJ IM SCH (09:00)
[2023-06-11 10:46] VITALS: BP 134/95
[2023-06-11] MEDS ORDERED: DiphenhydrAMINE HCL 50 MG/ML SDV IV SCH (11:00)
[2023-06-11] MEDS ORDERED: KETOROLAC TROMETHAMINE 15 MG/ML SDV IV SCH (11:00)
[2023-06-11] MEDS ORDERED: METOCLOPRAMIDE HCL 10 MG/2 ML SDV IV SCH (11:00)
[2023-06-11] MEDS ORDERED: ATORVASTATIN CA80 MG PO (12:36)
[2023-06-11] MEDS ORDERED: LASIX20 MG PO (12:40)
== END 2023-06-11 14:28 | disposition home or self-care (01) | DRG 103 ==
LOC: ED 10:37 → ED-I 15:55 → ED 16:25 → MS2 16:26
PROVIDERS: Family Medicine; Nurse Practitioner; Nurse Practitioner Family; ADMIT Student in an Organized Health Care Education/Training Program; ATTEND Student in an Organized Health Care Education/Training Program
PROC: 3E0234Z Introduction of Serum, Toxoid and Vaccine into Muscle, Percutaneous Approach (ICD-10-PCS; principal; 2023-06-11)
PROC: 3E02340 Introduction of Influenza Vaccine into Muscle, Percutaneous Approach (ICD-10-PCS; 2023-06-11)
DX: G44.59 Other complicated headache syndrome (principal); I69.954 Hemiplegia and hemiparesis following unspecified cerebrovascular disease affecting left non-dominant side; J44.1 Chronic obstructive pulmonary disease with (acute) exacerbation; I50.22 Chronic systolic (congestive) heart failure; I67.82 Cerebral ischemia; I69.992 Facial weakness following unspecified cerebrovascular disease; I11.0 Hypertensive heart disease with heart failure; F14.10 Cocaine abuse, uncomplicated; E78.5 Hyperlipidemia, unspecified; E03.9 Hypothyroidism, unspecified; I48.91 Unspecified atrial fibrillation; M19.039 Primary osteoarthritis, unspecified wrist; I25.2 Old myocardial infarction; F17.210 Nicotine dependence, cigarettes, uncomplicated; Z95.818 Presence of other cardiac implants and grafts; Z86.711 Personal history of pulmonary embolism; Z79.82 Long term (current) use of aspirin; Z20.822 Contact with and (suspected) exposure to COVID-19; Z23 Encounter for immunization
CPT/HCPCS: J1650

== ENCOUNTER 2023-10-29 12:50 | Emergency (ER) | payer MEDICARE, MEDICAID ==
[~2023-10-29] VITALS: Ht 149.9 cm; Wt 72.0 kg
[~2023-10-29 12:50] MED LIST changes: +ASPIRIN 81 LOW81 MG PO; +LEVOTHYROXIN75 MC1 PO; +XANAX0.25 MG PO
[2023-10-29 13:00] VITALS: BP 112/76
[2023-10-29] MEDS ORDERED: NITROGLYCERIN 2% OINT UD 1 GM/PAK TD ONE (13:15)
[2023-10-29 13:17] LABS: BASO% 0.5 % (0-3); EOS% 3.8 % (0-8); HEMATOCRIT 46.3 % (37.0-47.0); HEMOGLOBIN 14.7 g/dl (12.0-16.0); IMMATURE GRANULOCYTES 0.2 % (0.0-5.0); LYMPH% 22.7 % (15-41); MEAN CELL VOLUME 99.8 fL CALC (80.0-100.0); MEAN CORPUSCULAR HGB 31.7 pG CALC (26.0-32.0); MEAN CORPUSCULAR HGB CONC 31.7 g/dL CAL (32.0-36.0); MONO% 11.2 % (2-13); NEUT# 5.4 thou/uL (2.00-7.15); NEUT% 61.6 % (42-76); RED BLOOD COUNT 4.64 mill/uL (4.20-5.60); RED CELL DISTRI WIDTH 12.8 % (11.5-15.5)
[2023-10-29 13:21] VITALS: BP 105/73
[2023-10-29 13:27] LABS: ALBUMIN 4.2 g/dL (3.2-5.0); BILIRUBIN, TOTAL 0.3 mg/dL (0.02-1.3); CREATININE 0.7 mg/dL (0.5-1.0); POTASSIUM 4.2 mmol/l (3.5-5.1); TOTAL PROTEIN 7.6 g/dL (6.3-8.2)
== END 2023-10-29 13:29 | disposition left against medical advice (07) ==
LOC: ED 12:50
PROVIDERS: Nurse Practitioner
DX: R07.9 Chest pain, unspecified (principal); I25.10 Atherosclerotic heart disease of native coronary artery without angina pectoris; I48.91 Unspecified atrial fibrillation; I25.2 Old myocardial infarction; F17.200 Nicotine dependence, unspecified, uncomplicated; Z53.29 Procedure and treatment not carried out because of patient's decision for other reasons; Z86.73 Personal history of transient ischemic attack (TIA), and cerebral infarction without residual deficits; Z95.818 Presence of other cardiac implants and grafts

== ENCOUNTER 2023-11-03 19:31 | Emergency (ER) | payer MEDICARE, MEDICAID ==
[~2023-11-03] VITALS: Ht 149.9 cm; Wt 79.0 kg
[2023-11-03 19:41] VITALS: BP 116/62
[2023-11-03] MEDS ORDERED: IBUPROFEN 600 MG/TAB PO ONE (19:45)
[2023-11-03] MEDS ORDERED: ACETAMINOPHEN 500 MG TAB PO ONE (19:45)
[2023-11-03] MEDS ORDERED: TYLENOL # 31 TA1 PO (20:24)
[2023-11-03] MEDS ORDERED: traMADol HCL 50 MG/TAB PO ONE (20:25)
[2023-11-03 20:40] VITALS: BP 116/62
== END 2023-11-03 20:40 | disposition home or self-care (01) ==
LOC: ED 19:31
DX: S52.121A Displaced fracture of head of right radius, initial encounter for closed fracture (principal); I10 Essential (primary) hypertension; J44.9 Chronic obstructive pulmonary disease, unspecified; I25.2 Old myocardial infarction; F17.200 Nicotine dependence, unspecified, uncomplicated; W01.0XXA Fall on same level from slipping, tripping and stumbling without subsequent striking against object, initial encounter; Y92.007 Garden or yard of unspecified non-institutional (private) residence as the place of occurrence of the external cause; Z86.73 Personal history of transient ischemic attack (TIA), and cerebral infarction without residual deficits; Z95.818 Presence of other cardiac implants and grafts; Z87.81 Personal history of (healed) traumatic fracture

== ENCOUNTER 2024-05-13 20:40 | Emergency (ER) | payer MEDICARE, MEDICAID ==
[~2024-05-13] VITALS: Ht 149.9 cm; Wt 79.0 kg
[~2024-05-13 20:40] MED LIST changes: +HYDROCO/APAP1 TA9 PO; +TYLENOL # 31 TA1 PO
[2024-05-13 22:36] VITALS: BP 121/78
[2024-05-13 23:02] VITALS: BP 105/77
[2024-05-13 23:30] VITALS: BP 111/81
[2024-05-14] VITALS: BP 107/71
[2024-05-14 00:30] VITALS: BP 121/88
[2024-05-14 01:02] VITALS: BP 115/78
[2024-05-14] MEDS ORDERED: TRAMADOL HYDROC50 M1 PO (01:22)
[2024-05-14] MEDS ORDERED: traMADol HCL 50 MG/TAB PO ONE (01:25)
[2024-05-14 01:30] VITALS: BP 116/77
[2024-05-14 01:46] VITALS: BP 116/77
== END 2024-05-14 01:46 | disposition home or self-care (01) ==
LOC: ED 20:40
DX: S83.92XA Sprain of unspecified site of left knee, initial encounter (principal); I11.0 Hypertensive heart disease with heart failure; I50.9 Heart failure, unspecified; E78.5 Hyperlipidemia, unspecified; I48.91 Unspecified atrial fibrillation; J44.9 Chronic obstructive pulmonary disease, unspecified; I25.2 Old myocardial infarction; F17.200 Nicotine dependence, unspecified, uncomplicated; W19.XXXA Unspecified fall, initial encounter; Z86.73 Personal history of transient ischemic attack (TIA), and cerebral infarction without residual deficits; Z95.818 Presence of other cardiac implants and grafts

== ENCOUNTER 2024-06-13 12:38 | Emergency (ER) | payer MEDICARE, MEDICAID ==
[~2024-06-13] VITALS: Ht 149.9 cm; Wt 81.6 kg
[2024-06-13 12:56] VITALS: BP 117/67
[2024-06-13] MEDS ORDERED: HYDROcodone 7.5 MG/Acetaminophen 325 MG/COMBO PO ONE (13:05)
[2024-06-13 13:31] VITALS: BP 88/55
[2024-06-13] MEDS ORDERED: LORTAB 1010 MG PO (13:49)
== END 2024-06-13 13:55 | disposition home or self-care (01) ==
LOC: ED 12:38
DX: M25.562 Pain in left knee (principal); I11.0 Hypertensive heart disease with heart failure; I50.9 Heart failure, unspecified; J44.9 Chronic obstructive pulmonary disease, unspecified; I48.91 Unspecified atrial fibrillation; I25.2 Old myocardial infarction; Z95.818 Presence of other cardiac implants and grafts; F17.200 Nicotine dependence, unspecified, uncomplicated; Z86.73 Personal history of transient ischemic attack (TIA), and cerebral infarction without residual deficits

== ENCOUNTER 2024-06-19 18:51 | Emergency (ER) | payer MEDICARE, MEDICAID ==
[~2024-06-19] VITALS: Ht 149.9 cm; Wt 79.0 kg
[~2024-06-19 18:51] MED LIST changes: +LORTAB 1010 MG PO
[2024-06-19] MEDS ORDERED: HYDROcodone/Acetaminophen 1 COMBO TAB PO ONE (20:25)
[2024-06-19] MEDS ORDERED: DICLOFENAC SODIUM 75 MG/TAB PO ONE (20:25)
[2024-06-19] MEDS ORDERED: LORTAB 1010 MG PO (20:30)
[2024-06-19 20:50] VITALS: BP 130/95
== END 2024-06-19 20:50 | disposition home or self-care (01) ==
LOC: ED 18:51
DX: M25.562 Pain in left knee (principal); I11.0 Hypertensive heart disease with heart failure; I50.9 Heart failure, unspecified; I25.2 Old myocardial infarction; J44.9 Chronic obstructive pulmonary disease, unspecified; I48.91 Unspecified atrial fibrillation; F17.200 Nicotine dependence, unspecified, uncomplicated; Z86.73 Personal history of transient ischemic attack (TIA), and cerebral infarction without residual deficits; Z95.818 Presence of other cardiac implants and grafts